=== PATIENT | male | born 1950 | race Caucasian/White ===

== ENCOUNTER 2022-02-14 21:39 | Inpatient (IN) | payer OTHER, SELFPAY ==
--- NOTE | ~2022-02-14 | XR_ITS ---
EXAMINATION: XR CHEST CLINICAL INFORMATION: Shortness of breath COMPARISON: Chest CT 01/05/2021 TECHNIQUE: Frontal view of the chest was obtained. FINDINGS: Lungs are slightly hypoexpanded. Curvilinear subsegmental atelectasis versus scarring in the right lower lung. No airspace consolidation. No pleural effusion or pneumothorax. Approximately 9 mm left apical pulmonary nodule corresponding to finding on CT. Normal cardiomediastinal silhouette. Status post median sternotomy. Intact sternal wires. Mediastinal vascular clips. No evidence pulmonary edema. No acute osseous injury. ACDF hardware projects over the visualized cervical spine. XR/XR chest 1V IMPRESSION: 1. No acute pulmonary process. 2. Approximately 9 mm left apical pulmonary nodule corresponding to finding on CT. 3. Mild right basilar subsegmental atelectasis versus scarring.
--- NOTE | ~2022-02-14 | XR_ITS ---
EXAMINATION: XR CHEST CLINICAL INFORMATION: CHF. COMPARISON: 02/14/2022 chest radiograph. TECHNIQUE: Frontal view of the chest was obtained. FINDINGS: Interval increase in pulmonary vascular markings with significant increase patchy infiltrates in the right lung, most pronounced in the right upper lobe. Mild left basilar linear markings are seen. The heart and mediastinal structures are unremarkable. Multilevel sternotomy wires are intact. XR/XR chest 1V IMPRESSION: Significant interval increase in pulmonary vascular congestion and patchy infiltrates in the right lung. These findings are nonspecific and could be cardiogenic however an infectious/inflammatory process cannot be excluded.
[2022-02-14 21:41] VITALS: BP 145/73; PULSE 120; O2SAT 88
[2022-02-14 21:42] VITALS: BP 153/76; PULSE 126; RESP 30; TEMP 36.4; O2SAT 100; BMI 34.2
--- NOTE | 2022-02-14 21:45 | ECG_ITS ---
Test Reason : SOB Blood Pressure : / mmHG Vent. Rate : 127 BPM Atrial Rate : 127 BPM P-R Int : 124 ms QRS Dur : 086 ms QT Int : 330 ms P-R-T Axes : 000 035 043 degrees QTc Int : 479 ms Poor data quality Sinus tachycardia Low voltage QRS Borderline ECG No previous ECGs available Referred By: Dinorah Rai Electronically Signed By:OSMAR DENSON MD
--- NOTE | 2022-02-14 21:46 | ED_ITS ---
HPI - SOB/Dyspnea General Chief Complaint: Dyspnea Stated Complaint: Resp Distress Source: patient and EMS Mode of arrival: EMS History of Present Illness HPI Narrative: 71-year-old male with arrival from [facility] with acute onset of shortness of breath, patient states that he is supposed to be on oxygen at night and he was not placed on the oxygen and also endorses that he typically follows up at [facility] in [facility] for his paracentesis and that he was last seen at [facility] approximately 2 weeks ago. He denies any fever chills but has shortness of breath and says that he has not received all of his daily medications. His history is significant for liver cirrhosis, CKD, dementia. Patient reports multiple episodes of diarrhea throughout the day. Related Data Allergies Allergy/AdvReac Type Severity Reaction Status Date / Time Unable to Assess Allergy Verified 02/14/22 21:45 Review of Systems Review of Systems: Pertinent positives and negatives as stated in HPI 10 point review of systems is otherwise negative. PMFSH Past Medical History Source: nursing notes reviewed Social History Social History Advance Directives: No Physical Exam Vital Signs: Vital Signs: Last Vital Signs Temp 99.1 F 02/15/22 00:10 Pulse 136 H 02/15/22 00:10 Resp 28 H 02/15/22 00:10 BP 96/65 02/15/22 00:10 Pulse Ox 93 02/15/22 00:10 O2 Del Method 02/15/22 00:10 O2 Flow Rate 15 02/15/22 00:10 BMI result Body Mass Index 34.2 VITAL SIGNS: Reviewed. GENERAL: Well developed, well nourished, in no acute distress. HEAD: Normocephalic/atraumatic EYES: PERRLA, EOMI, scleral icterus EARS: Ext canals without abnormality OROPHARYNX: no oral lesions noted, posterior pharynx clear NECK: Supple, no adenopathy LUNGS: Decreased bilaterally, tachypnea SpO2<100> on CPAP CARDIOVASCULAR: Sinus tachycardia rate and rhythm without noted murmurs, no JVD but bilateral lower extremity 2 to 3+ pitting edema ABDOMEN: Distended, positive fluid wave, tenderness diffusely on palpation MUSCULOSKELETAL: No tenderness, deformities, or effusions noted on gross inspection. EXTREMITIES: No cyanosis, clubbing or edema. SKIN: Inspection of the skin reveals no rashes, mild jaundice NEUROLOGIC: Alert and oriented x 3. Strength and sensation to light touch were grossly intact x 4. Course Course Course Narrative: 71-year-old male with suspected shortness of breath secondary to increased ascitic fluid, VBG inconsistent with CO2 retention to further implicate COPD exacerbation and feel that this is likely secondary to increased abdominal ascites. Given the fact that the patient is experiencing some tenderness on palpation will do a diagnostic and empirically start antibiotics after the paracentesis as well as administering albumin. On review of patient's documentation it appears that they typically removed 5 L of fluid and administer albumin afterwards. 2342: Paracentesis conducted at bedside under ultrasound guidance, we were able to get an enough for diagnostic tests to be conducted as patient had diffuse abdominal discomfort as well as 1 L of fluid before patient inadvertently pulled the catheter from his abdomen. Direct pressure was held for 5 minutes and then a dressing was applied. Blood pressures remained stable throughout, however nurse is now informing me that patient's blood pressure is 80s over 40s and he r emains tachycardic. He is oxygenating well on supplemental oxygen. Will give albumin, normal saline, Rocephin, and re-evaluate. We have requested [facility] records. Reevaluation(s) Reevaluation #1: I discussed the case with the inpatient hospitalist as patient required to be placed back on CPAP with immediate improvement in respiratory rate as well as oxygenation. Patient does remain tachycardic. Time: 00:40 Medications Administered Generic Name Dose Route Start Last Admin Trade Name Freq PRN Reason Stop Dose Admin Sodium Chloride 500 mls @ 500 mls/hr 02/14/22 23:45 02/14/22 23:43 Ns IV 02/15/22 00:44 500 mls/hr .Q1H HUNTER Administration Discontinued Medications Generic Name Dose Route Start Last Admin Trade Name Freq PRN Reason Stop Dose Admin Magnesium Sulfate/Dextrose 1 gm in 100 mls @ 100 mls/hr 02/14/22 22:45 02/15/22 00:36 Magnesium Sulfate/D5w IV 02/14/22 23:44 Infused ONCE ONE Infusion Ceftriaxone Sodium 2 gm/ 50 mls @ 100 mls/hr 02/14/22 23:28 02/15/22 00:36 Sodium Chloride IV 02/14/22 23:57 Infused ONCE ONE Infusion Levalbuterol HCl 1.25 mg 02/14/22 22:02 02/14/22 23:29 Levalbuterol Hcl 1.25 Mg/0.5 Ml Vial.Neb INHALE 02/14/22 22:03 1.25 mg ONCE ONE Administration MDM - SOB/Dyspnea Lab Data Result diagrams: 02/14/22 22:07 02/14/22 22:07 Labs: Lab Results 02/14/22 02/14/22 02/14/22 Range/Units 22:06 22:07 22:07 WBC 20.0 H (4.8-10.8) X10*3/uL RBC 3.65 L (4.60-5.80) X10*6/uL Hgb 12.2 L (14.0-18.0) g/dl Hct 35.3 L (42.0-52.0) % MCV 96.7 (80.0-98.0) fL MCH 33.4 H (27.0-33.0) pg MCHC 34.6 (31.0-36.0) g/dl RDW 14.3 (11.0-16.0) % Plt Count 160 (160-400) X10*3/uL MPV 11.3 (9.4-12.4) fL Immature Gran % (Auto) 0.8 H (0.0-0.4) % Neut % (Auto) 86.8 H (45-73) % Lymph % (Auto) 9.3 L (20-40) % Concho % (Auto) 2.5 (2-11) % Eos % (Auto) 0.3 (0-4) % Baso % (Auto) 0.3 (0-2) % Lymph # (Auto) 1.9 (1.2-4.9) X10*3/uL Concho # (Auto) 0.5 (0.1-1.2) X10*3/uL Eos # (Auto) 0.1 (0.0-0.4) X10*3/uL Baso # (Auto) 0.1 (0.0-0.2) X10*3/uL Abs Immat Gran (auto) 0.16 H (0.00-0.03) X10*3/uL Absolute Neuts (auto) 17.4 H (2.0-8.3) x10*3/uL Absolute Nucleated RBC 0.000 (0.0-0.012) X10*3/uL Nucleated RBC % (auto) 0.0 (0.0-0.2) /100WBC PT 25.9 H (10.0-13.1) SEC INR 2.2 H (0.9-1.1) APTT 32.0 (26.0-36.4) SEC VBG pH (7.32-7.43) VBG pCO2 mmHg VBG pO2 mmHg VBG HCO3 (22-26) mmol/L VBG O2 Saturation % VBG Base Excess mmol/L Sodium (135-145) mmol/L Potassium (3.3-5.1) mmol/L Chloride (96-108) mmol/L Carbon Dioxide (22-29) mmol/L Anion Gap (12-20) BUN (9-16) mg/dL Creatinine (0.5-1.4) mg/dL Estim Creat Clear Calc Estimated GFR Random Glucose (60-115) mg/dL Lactic Acid (0.5-2.0) mmol/L Calcium (8.4-10.2) mg/dL Magnesium (1.6-2.6) mg/dL Total Bilirubin (0.0-1.0) mg/dL AST (5-37) U/L ALT (0-40) U/L Alkaline Phosphatase (39-117) U/L B-Natriuretic Peptide 67 (<100) pg/mL Total Protein (6.5-8.0) g/dL Albumin (3.5-5.0) g/dL Urine Color Urine Appearance Urine pH (5.0-9.0) Ur Specific Naper (1.005-1.025) Urine Protein (Neg-Trace) mg/dL Urine Glucose (UA) (Negative) mg/dL Urine Ketones (Negative) mg/dL Urine Blood (Negative) Urine Nitrite (Negative) Ur Leukocyte Esterase (Negative) Urine RBC (0-2) /HPF Urine WBC (0-5) /HPF Ur Squamous Epith Cells (0-2) /HPF Urine Bacteria (None Seen) Hyaline Casts (0-2) /LPF Peritoneal WBC X10*3/uL Peritoneal RBC X10*6/uL Periton Neutrophils % Periton Lymphocytes % Peritoneal Monocytes % Peritoneal Other Cells % Influenza Type A (PCR) (Negative) Influenza Type B (PCR) (Negative) RSV RNA Qual (PCR) (Negative) SARS-CoV-2 RNA (RT-PCR) (Negative) 02/14/22 02/14/22 02/14/22 Range/Units 22:07 22:07 22:08 WBC (4.8-10.8) X10*3/uL RBC (4.60-5.80) X10*6/uL Hgb (14.0-18.0) g/dl Hct (42.0-52.0) % MCV (80.0-98.0) fL MCH (27.0-33.0) pg MCHC (31.0-36.0) g/dl RDW (11.0-16.0) % Plt Count (160-400) X10*3/uL MPV (9.4-12.4) fL Immature Gran % (Auto) (0.0-0.4) % Neut % (Auto) (45-73) % Lymph % (Auto) (20-40) % Concho % (Auto) (2-11) % Eos % (Auto) (0-4) % Baso % (Auto) (0-2) % Lymph # (Auto) (1.2-4.9) X10*3/uL Concho # (Auto) (0.1-1.2) X10*3/uL Eos # (Auto) (0.0-0.4) X10*3/uL Baso # (Auto) (0.0-0.2) X10*3/uL Abs Immat Gran (auto) (0.00-0.03) X10*3/uL Absolute Neuts (auto) (2.0-8.3) x10*3/uL Absolute Nucleated RBC (0.0-0.012) X10*3/uL Nucleated RBC % (auto) (0.0-0.2) /100WBC PT (10.0-13.1) SEC INR (0.9-1.1) APTT (26.0-36.4) SEC VBG pH (7.32-7.43) VBG pCO2 mmHg VBG pO2 mmHg VBG HCO3 (22-26) mmol/L VBG O2 Saturation % VBG Base Excess mmol/L Sodium 134 L (135-145) mmol/L Potassium 4.2 (3.3-5.1) mmol/L Chloride 102 (96-108) mmol/L Carbon Dioxide 21 L (22-29) mmol/L Anion Gap 15 (12-20) BUN 11 (9-16) mg/dL Creatinine 1.09 (0.5-1.4) mg/dL Estim Creat Clear Calc 74.4 Estimated GFR > 60 Random Glucose 159 H (60-115) mg/dL Lactic Acid 2.6 H* (0.5-2.0) mmol/L Calcium 7.6 L (8.4-10.2) mg/dL Magnesium 1.5 L (1.6-2.6) mg/dL Total Bilirubin 2.7 H (0.0-1.0) mg/dL AST 38 H (5-37) U/L ALT 13 (0-40) U/L Alkaline Phosphatase 132 H (39-117) U/L B-Natriuretic Peptide (<100) pg/mL Total Protein 6.6 (6.5-8.0) g/dL Albumin 2.3 L (3.5-5.0) g/dL Urine Color Dark Yellow Urine Appearance Cloudy Urine pH 5.0 (5.0-9.0) Ur Specific Naper 1.020 (1.005-1.025) Urine Protein Trace (Neg-Trace) mg/dL Urine Glucose (UA) Negative (Negative) mg/dL Urine Ketones Trace (Negative) mg/dL Urine Blood Moderate (2+) H (Negative) Urine Nitrite Negative (Negative) Ur Leukocyte Esterase Moderate (2+) H (Negative) Urine RBC 11-20 H (0-2) /HPF Urine WBC >50 H (0-5) /HPF Ur Squamous Epith Cells 11-20 (0-2) /HPF Urine Bacteria 1+ (None Seen) Hyaline Casts >20 (0-2) /LPF Peritoneal WBC X10*3/uL Peritoneal RBC X10*6/uL Periton Neutrophils % Periton Lymphocytes % Peritoneal Monocytes % Peritoneal Other Cells % Influenza Type A (PCR) (Negative) Influenza Type B (PCR) (Negative) RSV RNA Qual (PCR) (Negative) SARS-CoV-2 RNA (RT-PCR) (Negative) 02/14/22 02/14/22 02/14/22 Range/Units 22:10 22:14 23:27 WBC (4.8-10.8) X10*3/uL RBC (4.60-5.80) X10*6/uL Hgb (14.0-18.0) g/dl Hct (42.0-52.0) % MCV (80.0-98.0) fL MCH (27.0-33.0) pg MCHC (31.0-36.0) g/dl RDW (11.0-16.0) % Plt Count (160-400) X10*3/uL MPV (9.4-12.4) fL Immature Gran % (Auto) (0.0-0.4) % Neut % (Auto) (45-73) % Lymph % (Auto) (20-40) % Concho % (Auto) (2-11) % Eos % (Auto) (0-4) % Baso % (Auto) (0-2) % Lymph # (Auto) (1.2-4.9) X10*3/uL Concho # (Auto) (0.1-1.2) X10*3/uL Eos # (Auto) (0.0-0.4) X10*3/uL Baso # (Auto) (0.0-0.2) X10*3/uL Abs Immat Gran (auto) (0.00-0.03) X10*3/uL Absolute Neuts (auto) (2.0-8.3) x10*3/uL Absolute Nucleated RBC (0.0-0.012) X10*3/uL Nucleated RBC % (auto) (0.0-0.2) /100WBC PT (10.0-13.1) SEC INR (0.9-1.1) APTT (26.0-36.4) SEC VBG pH 7.41 (7.32-7.43) VBG pCO2 32 mmHg VBG pO2 71 mmHg VBG HCO3 20 L (22-26) mmol/L VBG O2 Saturation 93.0 % VBG Base Excess -2.9 mmol/L Sodium (135-145) mmol/L Potassium (3.3-5.1) mmol/L Chloride (96-108) mmol/L Carbon Dioxide (22-29) mmol/L Anion Gap (12-20) BUN (9-16) mg/dL Creatinine (0.5-1.4) mg/dL Estim Creat Clear Calc Estimated GFR Random Glucose (60-115) mg/dL Lactic Acid (0.5-2.0) mmol/L Calcium (8.4-10.2) mg/dL Magnesium (1.6-2.6) mg/dL Total Bilirubin (0.0-1.0) mg/dL AST (5-37) U/L ALT (0-40) U/L Alkaline Phosphatase (39-117) U/L B-Natriuretic Peptide (<100) pg/mL Total Protein (6.5-8.0) g/dL Albumin (3.5-5.0) g/dL Urine Color Urine Appearance Urine pH (5.0-9.0) Ur Specific Naper (1.005-1.025) Urine Protein (Neg-Trace) mg/dL Urine Glucose (UA) (Negative) mg/dL Urine Ketones (Negative) mg/dL Urine Blood (Negative) Urine Nitrite (Negative) Ur Leukocyte Esterase (Negative) Urine RBC (0-2) /HPF Urine WBC (0-5) /HPF Ur Squamous Epith Cells (0-2) /HPF Urine Bacteria (None Seen) Hyaline Casts (0-2) /LPF Peritoneal WBC 0.194 X10*3/uL Peritoneal RBC < 0.002 X10*6/uL Periton Neutrophils 22 % Periton Lymphocytes 8 % Peritoneal Monocytes 8 % Peritoneal Other Cells 62 % Influenza Type A (PCR) NEGATIVE (Negative) Influenza Type B (PCR) NEGATIVE (Negative) RSV RNA Qual (PCR) NEGATIVE (Negative) SARS-CoV-2 RNA (RT-PCR) NEGATIVE (Negative) ECG Data Attestation: I personally reviewed and interpreted this ECG as follows: Prior ECG tracings: not available for review Interpretation: Sinus tachycardia HR -127, no STEMI, ND/QRS/QTC are within normal limits. Procedures Paracentesis Time Out Performed: Yes Indication: possible spontaneous bacterial peritonitis Procedure: diagnostic paracentesis Location: RLQ Local Anesthetic: lidocaine 2% Amount of anesthesia used (mL): 2 Bedside Ultrasound Used: yes, real-time guidance Preparation: sterile prep and drape Amount of fluid obtained (mL): 1,030 Fluid: cloudy Size of Needle Used: 18 Post Procedure Exam: awake, alert and normal BP Patient Tolerated Procedure: well Complications: none Critical Care Time Critical Care Time Critical Care Time: Yes Total Critical Care Time: 30 Attestation: I personally attest to this time spent taking care of the patient. Discharge Plan Discharge Clinical Impression: Shortness of breath, Abdominal pain, Ascites, COPD (chronic obstructive pulmonary disease), Cirrhosis of liver Patient Disposition: Admitted As Inpatient
[2022-02-14 22:17] LABS: MANUAL DIFF FLAG NO
[2022-02-14 22:20] LABS: Venous Blood Gas Refer to POC result
[2022-02-14 22:21] LABS: VBG Base Excess -2.9 mmol/L; VBG HCO3 20 mmol/L (22-26); VBG pCO2 32 mmHg; VBG pH 7.41 (7.32-7.43); VBG pO2 71 mmHg
[2022-02-14 22:29] LABS: Basophils Absolute Auto 0.1 X10*3/uL (0.0-0.2); Basophils Percent Auto 0.3 % (0-2); Eosinophils Absolute Auto 0.1 X10*3/uL (0.0-0.4); Eosinophils Percent Auto 0.3 % (0-4); Hematocrit 35.3 % (42.0-52.0); Hemoglobin 12.2 g/dl (14.0-18.0); INTERNATIONAL NORM RATIO 2.2 (0.9-1.1); Imm Gran Abs Auto 0.16 X10*3/uL (0.00-0.03); Imm Gran Pct Auto 0.8 % (0.0-0.4); Lymphocytes Absolute Auto 1.9 X10*3/uL (1.2-4.9); Lymphocytes Percent Auto 9.3 % (20-40); Mean Corpuscular HGB Conc 34.6 g/dl (31.0-36.0); Mean Corpuscular Hemoglobin 33.4 pg (27.0-33.0); Mean Corpuscular Volume 96.7 fL (80.0-98.0); Mean Platelet Volume 11.3 fL (9.4-12.4); Monocytes Absolute Auto 0.5 X10*3/uL (0.1-1.2); Monocytes Percent Auto 2.5 % (2-11); Neutrophils Absolute Auto 17.4 x10*3/uL (2.0-8.3); Neutrophils Percent Auto 86.8 % (45-73); Platelet Count 160 X10*3/uL (160-400); Prothrombin Time 25.9 SEC (10.0-13.1); Red Blood Count 3.65 X10*6/uL (4.60-5.80); Red Cell Distribution Width 14.3 % (11.0-16.0)
[2022-02-14 22:31] LABS: Appearance Urine Cloudy; Color Urine Dark Yellow; Glucose Urine UA Negative (Negative); Leukocyte Esterase Urine Moderate (2+) (Negative); Nitrite Urine Negative (Negative); UMIC TRIGGER UACC YES; Urine Blood Moderate (2+) (Negative); Urine Ketones Trace mg/dL (Negative); Urine Protein Trace mg/dL (Neg-Trace)
[2022-02-14 22:38] LABS: Alanine Aminotransferase 13 U/L (0-40); Albumin Level 2.3 g/dL (3.5-5.0); Alkaline Phosphatase 132 U/L (39-117); Anion Gap 15 (12-20); Aspartate Amino Transferase 38 U/L (5-37); Bilirubin Total 2.7 mg/dL (0.0-1.0); Blood Urea Nitrogen 11 mg/dL (9-16); Calcium 7.6 mg/dL (8.4-10.2); Carbon Dioxide 21 mmol/L (22-29); Chloride 102 mmol/L (96-108); Creatinine Clr Calc Pharmacy 74.4; Estimated Glomerular Filt Rate > 60; Glucose Random 159 mg/dL (60-115); Lactic Acid 2.6 mmol/L (0.5-2.0); Magnesium 1.5 mg/dL (1.6-2.6); Potassium 4.2 mmol/L (3.3-5.1); Sodium 134 mmol/L (135-145); Total Protein 6.6 g/dL (6.5-8.0)
[2022-02-14 22:52] LABS: Bacteria Urine 1+ (None Seen); Hyaline Casts Urine >20 /LPF (0-2); UACC Culture Trigger YES; WBC Urine >50 /HPF (0-5)
[2022-02-14] MEDS: Magnesium Sulfate/D5W 1 GM/100 ML PIGGYBACK IV (22:56)
--- NOTE | 2022-02-14 23:02 | PC.NURSE ---
Called [facility] at [phone] for Medical Records on patient per .
[2022-02-14 23:06] LABS: Influenza A PCR NEGATIVE (Negative); Influenza B PCR NEGATIVE (Negative); Resp Syncy Virus RNA Qual PCR NEGATIVE (Negative); SARS COV2 PCR INHOUSE NEGATIVE (Negative)
[2022-02-14 23:30] VITALS: PULSE 132; RESP 22; O2SAT 94
[2022-02-14 23:31] VITALS: BP 116/69; PULSE 131; RESP 26; O2SAT 96
[2022-02-14 23:32] VITALS: BP 121/71; PULSE 130; RESP 26; O2SAT 96
--- NOTE | 2022-02-14 23:34 | PC.NURSE ---
Bedside paracentesis at bedside by MD Fredi
[2022-02-14 23:40] VITALS: BP 89/56; PULSE 131; RESP 22; O2SAT 93
--- NOTE | 2022-02-14 23:41 | PC.NURSE ---
Notified Fredi about low BP s/p paracentesis. Verbal orders for 500mL NS bolus
[2022-02-14 23:42] LABS: MN% 73.7 %; PMN% 26.3 %; WBC Peritoneal Fluid 0.194 X10*3/uL
[2022-02-14] MEDS: cefTRIAXone sodium 2 GM in 0.9 % Sodium Chloride 50 ML IV (23:42)
[2022-02-14] MEDS: 0.9 % Sodium Chloride 500 ML IV (23:43)
[2022-02-14 23:47] LABS: RBC Peritoneal Fluid < 0.002 X10*6/uL
[2022-02-15] VITALS (31 sets, daily range): BP systolic 85–140; BP diastolic 27–72; PULSE 86–136; RESP 15–40; TEMP 36.1–37.3; O2SAT 90–100; BMI 32.5; BMI 32.8
[2022-02-15 00:13] LABS: Reflex Lactate? Lactic Acid Added
[2022-02-15 00:17] LABS: BF Shift QC OK YES; Lymphocyte Peritoneal Fl 8 %; Monocytes Peritoneal Fl 8 %; Neutrophils Peritoneal Fluid 22 %; Other Peritioneal Fl 62 %
[2022-02-15 00:18] LABS: B Type Natriuretic Peptide 67 pg/mL (<100)
[2022-02-15] MEDS: Lidocaine HCl 2 % MPF 5 ML VIAL SUBCUT (01:21)
--- NOTE | 2022-02-15 01:24 | PC.NURSE ---
Daughter, Sravanthi's phone number - [phone]. Call at any time of the day or night with updates.
--- NOTE | 2022-02-15 01:36 | PM.CCHP ---
History of Present Illness Date of Service: 02/15/22 Attending physician on admission: Armando Schmidt Chief Complaint: Shortness of breath The patient is a 71 year old male with Past medical history of? paraplegia, neurogenic bladder, type II DM ,dementia,? hypertension,? hyperlipidemia, CVA, BPH, CKD, COPD/emphysema CAD ([place] s/p stenting) s/p CABG x4, KHAN, decompensated cirrhosis with esophageal varices, ascites, hepatic encephalopathy and liver lesions, lung nodule and recent diagnosis of COVID-19 infection? who [facility] to emergency room? [facility]? with shortness of breath.? [facility] facility reported patient acute shortness of breath,? was schedule for paracentesis tomorrow.?? On arrival to the emergency room? patient tachypneic, hypoxic requiring CPAP support. ED physician attempted to do bedside? paracentesis,? but was only able to drain 1 L as the patient pulled out the catheter. ? Laboratory data significant for? WBC 20, hemoglobin 12.2, hematocrit 35.3, serum bicarb 21, lactic acid 2.6, magnesium 1.5, AST 38, alk-phos 132, albumin 2.3. ED course:? Patient received? ceftriaxone, 500 mL bolus, magnesium, and albuterol while in ED.? ? Patient will be admitted for acute respiratory failure requiring CPAP support Review of Systems Review of Systems: Patient confused at baseline, Yes Unobtainable due to mental status PMFSH Past Medical History Medical History (Updated 02/15/22 @ 02:25 by Diane Lozano NP) BPH (benign prostatic hyperplasia) CKD (chronic kidney disease) COVID-19 CVA (cerebral vascular accident) Decompensated liver disease Dementia Diabetes Esophageal varices Hyperlipidemia Hypertension Liver lesion Lung nodule KHAN (nonalcoholic steatohepatitis) Neurogenic bladder Paraplegia Surgical History Surgical History (Updated 02/15/22 @ 02:25 by Diane Lozano NP) Hx of CABG Social History Social History Advance Directives: No Meds Allergies Allergy/AdvReac Type Severity Reaction Status Date / Time metformin Allergy Unknown Verified 02/15/22 03:03 Sulfa (Sulfonamide Allergy Unknown Verified 02/15/22 03:03 Antibiotics) BACTRIM Allergy Unknown Rash Uncoded 02/15/22 03:03 Active Medications: Current Medications Enoxaparin Sodium (Enoxaparin Sodium 40 Mg/0.4 Ml Syringe) 40 mg SUBCUT Q24H [facility] Albumin Human (Kedbumin 25 %) 100 mls @ 100 mls/hr IV Q1H [facility] Stop: 02/15/22 04:29 Piperacillin Sod/Tazobactam (Sod 4.5 gm/ Sodium Chloride) 100 mls @ 200 mls/hr IV Q6H [facility] Physical Exam Vital Signs: Vital Signs: Last Vital Signs Temp 99.2 F 02/15/22 01:24 Pulse 124 H 02/15/22 01:24 Resp 40 H 02/15/22 01:24 BP 99/50 L 02/15/22 01:24 Pulse Ox 92 02/15/22 01:24 O2 Del Method 02/15/22 01:24 O2 Flow Rate 15 02/15/22 00:10 BMI result Body Mass Index 34.2 Focused assement performed at 0100. Constitutional: Alert, in mild distress. Mental Status: Alert and oriented x self and place only. Forgetful and confused at times. Head: Normocephalic. Eyes: Pupils are equal, round and reactive to light. Extraocular muscles intact. Ear, Nose and Throat: Oropharynx clear, mucous membranes dry. Neck: Supple, Full range of motion. Respiratory: Diminished to auscultation. No wheezing, rales or rhonchi. Cardiovascular: Sinus tach. S1 S2 regular. No murmurs, rubs or gallops. normal cap refil Gastrointestinal: Protuberant, positive bowel sounds in all 4 quadrants.?semi firm, nontender, no rebound or guarding.?? Genitourinary: No costovertebral angle tenderness. Neurologic:Paraplegia, bilateral lower extremities. No focal deficits noted Skin: bruising on arms Psychiatric: Normal mood and affect Results Labs CBC and Chem 7: 02/15/22 03:43 02/15/22 03:43 Labs: Laboratory Results - last 24 hr 02/14/22 02/14/22 02/14/22 22:06 22:06 22:07 MCV 96.7 MCH 33.4 H MCHC 34.6 RDW 14.3 Plt Count 160 MPV 11.3 Immature Gran % (Auto) 0.8 H Neut % (Auto) 86.8 H Lymph % (Auto) 9.3 L Faulk % (Auto) 2.5 Eos % (Auto) 0.3 Baso % (Auto) 0.3 Lymph # (Auto) 1.9 Faulk # (Auto) 0.5 Eos # (Auto) 0.1 Baso # (Auto) 0.1 Abs Immat Gran (auto) 0.16 H Absolute Neuts (auto) 17.4 H Absolute Nucleated RBC 0.000 Nucleated RBC % (auto) 0.0 PT INR APTT VBG pH VBG pCO2 VBG pO2 VBG HCO3 VBG O2 Saturation VBG Base Excess Anion Gap Estim Creat Clear Calc Estimated GFR Random Glucose Lactic Acid Calcium Magnesium Total Bilirubin AST ALT Alkaline Phosphatase Troponin I High Sens 5.0 B-Natriuretic Peptide 67 Total Protein Albumin Urine Color Urine Appearance Urine pH Ur Specific [place] Urine Protein Urine Glucose (UA) Urine Ketones Urine Blood Urine Nitrite Ur Leukocyte Esterase Urine RBC Urine WBC Ur Squamous Epith Cells Urine Bacteria Hyaline Casts Peritoneal WBC Peritoneal RBC Periton Neutrophils Periton Lymphocytes Peritoneal Monocytes Peritoneal Other Cells Influenza Type A (PCR) Influenza Type B (PCR) RSV RNA Qual (PCR) SARS-CoV-2 RNA (RT-PCR) 02/14/22 02/14/22 02/14/22 22:07 22:07 22:07 MCV MCH MCHC RDW Plt Count MPV Immature Gran % (Auto) Neut % (Auto) Lymph % (Auto) Faulk % (Auto) Eos % (Auto) Baso % (Auto) Lymph # (Auto) Faulk # (Auto) Eos # (Auto) Baso # (Auto) Abs Immat Gran (auto) Absolute Neuts (auto) Absolute Nucleated RBC Nucleated RBC % (auto) PT 25.9 H INR 2.2 H APTT 32.0 VBG pH VBG pCO2 VBG pO2 VBG HCO3 VBG O2 Saturation VBG Base Excess Anion Gap 15 Estim Creat Clear Calc 74.4 Estimated GFR > 60 Random Glucose 159 H Lactic Acid 2.6 H* Calcium 7.6 L Magnesium 1.5 L Total Bilirubin 2.7 H AST 38 H ALT 13 Alkaline Phosphatase 132 H Troponin I High Sens B-Natriuretic Peptide Total Protein 6.6 Albumin 2.3 L Urine Color Urine Appearance Urine pH Ur Specific [place] Urine Protein Urine Glucose (UA) Urine Ketones Urine Blood Urine Nitrite Ur Leukocyte Esterase Urine RBC Urine WBC Ur Squamous Epith Cells Urine Bacteria Hyaline Casts Peritoneal WBC Peritoneal RBC Periton Neutrophils Periton Lymphocytes Peritoneal Monocytes Peritoneal Other Cells Influenza Type A (PCR) Influenza Type B (PCR) RSV RNA Qual (PCR) SARS-CoV-2 RNA (RT-PCR) 02/14/22 02/14/22 02/14/22 22:08 22:10 22:14 MCV MCH MCHC RDW Plt Count MPV Immature Gran % (Auto) Neut % (Auto) Lymph % (Auto) Faulk % (Auto) Eos % (Auto) Baso % (Auto) Lymph # (Auto) Faulk # (Auto) Eos # (Auto) Baso # (Auto) Abs Immat Gran (auto) Absolute Neuts (auto) Absolute Nucleated RBC Nucleated RBC % (auto) PT INR APTT VBG pH 7.41 VBG pCO2 32 VBG pO2 71 VBG HCO3 20 L VBG O2 Saturation 93.0 VBG Base Excess -2.9 Anion Gap Estim Creat Clear Calc Estimated GFR Random Glucose Lactic Acid Calcium Magnesium Total Bilirubin AST ALT Alkaline Phosphatase Troponin I High Sens B-Natriuretic Peptide Total Protein Albumin Urine Color Dark Yellow Urine Appearance Cloudy Urine pH 5.0 Ur Specific [place] 1.020 Urine Protein Trace Urine Glucose (UA) Negative Urine Ketones Trace Urine Blood Moderate (2+) H Urine Nitrite Negative Ur Leukocyte Esterase Moderate (2+) H Urine RBC 11-20 H Urine WBC >50 H Ur Squamous Epith Cells 11-20 Urine Bacteria 1+ Hyaline Casts >20 Peritoneal WBC Peritoneal RBC Periton Neutrophils Periton Lymphocytes Peritoneal Monocytes Peritoneal Other Cells Influenza Type A (PCR) NEGATIVE Influenza Type B (PCR) NEGATIVE RSV RNA Qual (PCR) NEGATIVE SARS-CoV-2 RNA (RT-PCR) NEGATIVE 02/14/22 23:27 MCV MCH MCHC RDW Plt Count MPV Immature Gran % (Auto) Neut % (Auto) Lymph % (Auto) Faulk % (Auto) Eos % (Auto) Baso % (Auto) Lymph # (Auto) Faulk # (Auto) Eos # (Auto) Baso # (Auto) Abs Immat Gran (auto) Absolute Neuts (auto) Absolute Nucleated RBC Nucleated RBC % (auto) PT INR APTT VBG pH VBG pCO2 VBG pO2 VBG HCO3 VBG O2 Saturation VBG Base Excess Anion Gap Estim Creat Clear Calc Estimated GFR Random Glucose Lactic Acid Calcium Magnesium Total Bilirubin AST ALT Alkaline Phosphatase Troponin I High Sens B-Natriuretic Peptide Total Protein Albumin Urine Color Urine Appearance Urine pH Ur Specific [place] Urine Protein Urine Glucose (UA) Urine Ketones Urine Blood Urine Nitrite Ur Leukocyte Esterase Urine RBC Urine WBC Ur Squamous Epith Cells Urine Bacteria Hyaline Casts Peritoneal WBC 0.194 Peritoneal RBC < 0.002 Periton Neutrophils 22 Periton Lymphocytes 8 Peritoneal Monocytes 8 Peritoneal Other Cells 62 Influenza Type A (PCR) Influenza Type B (PCR) RSV RNA Qual (PCR) SARS-CoV-2 RNA (RT-PCR) Imaging Radiologist's Impressions: Impressions Chest X-Ray 02/14/22 22:42 IMPRESSION: 1. No acute pulmonary process. 2. Approximately 9 mm left apical pulmonary nodule corresponding to finding on CT. 3. Mild right basilar subsegmental atelectasis versus scarring. Assessment and Plan (1) Acute respiratory failure: Status: Acute (2) Liver decompensation: Status: Acute (3) Ascites: Status: Acute (4) Decompensated liver disease: Status: Acute (5) KHAN (nonalcoholic steatohepatitis): Status: Acute (6) Neurogenic bladder: Status: Acute (7) Hypertension: Status: Acute (8) Liver lesion: Status: Acute (9) Lung nodule: Status: Acute Plan Neuro:? ?No acute issues Cardiac:?? Sepsis/ septic shock -? patient white count is 20, lactic elevated to 4. ? Received 500 mL in the emergency room? unable to receive? 30 mL/kg as patient already has ascites and he will third space. Will give albumin for fluid resuscitation. Cont abx. Pulmonary:? ?Acute respiratory? respiratory failure-? requiring CPAP support.? No acute infection? and chest x-ray. likely from liver cirrhosis/ascites.? Patient was unable? to have? appropriate ascites fluid drained? tonight.? Will continue with CPAP and wean off as tolerated? Renal:?? ?No acute issues GI:?? KHAN, Liver cirrhosis with ascites:? He? was scheduled to have paracentesis tomorrow.? Paracentesis was attempted? in the emergency room but? only able to get out 1 L.? Will give albumin. Cont to follow ascites fluid result.? Endo:?? ?No acute issues Heme/Onc:? ?Liver lesions/? lung nodule: patient has history of lesions? in his liver,? as well as new lung nodule noted in November 2021,? was not able to be diagnosed as family decided did not want to go with biopsy when patient was admitted [facility].? ID:? ?Leukocytosis- likely from ascites, ? SBP. ? patient has history of ESBL recistent infection,? receive ceftriaxone in the emergency room.? Will? switch to zosyn? cultures are resulted.? Psych:? No acute issues. Misc:? I spoke with the daughter Sravanthi (HCP) and step daughter Cheri regarding goals of care and plan. ? Daughters in agreement to change code status to DNR/DNI. New MOLST form completed Diet: NPO? Prophylaxis: ? On coumadin at home. On hold now. Will do pneumatic compression? Code? status: DNR/DNI as previously stated critical care time: x 90 min of critical care time? Critical Care Time Critical Care Time (minutes): 90
[2022-02-15] MEDS: Albumin Human 25 % 100 ML IV ×5 (01:51→19:41)
[2022-02-15] MEDS: Piperacillin Sodium/Tazobactam 4.5 GM in 0.9 % Sodium Chloride 100 ML IV ×2 (02:00→07:28)
[2022-02-15] MEDS: Albumin Human 25 % 100 ML 200 ML IV (02:28)
[2022-02-15 03:24] LABS: Reflex Lactate? 2 Y
[2022-02-15 03:33] LABS: pH Peritoneal Fluid 7.56
[2022-02-15 03:49] LABS: Albumin Peritoneal Fluid 0.4 GM/DL; Glucose Peritoneal Fluid 150 MG/DL; LDH Peritoneal Fluid 39 U/L; Total Protein Peritoneal Fluid 0.9 GM/DL
[2022-02-15 03:50] LABS: Basophils Percent Auto 0.3 % (0-2); Hemoglobin 10.9 g/dl (14.0-18.0); Imm Gran Abs Auto 0.01 X10*3/uL (0.00-0.03); Imm Gran Pct Auto 0.3 % (0.0-0.4); Mean Platelet Volume 10.8 fL (9.4-12.4); PLT CLUMP 1; SCAN SMEAR FLAG 1
[2022-02-15 03:52] LABS: Hematocrit 31.9 % (42.0-52.0); Lymphocytes Absolute Auto 0.3 X10*3/uL (1.2-4.9); Lymphocytes Percent Auto 8.6 % (20-40); Mean Corpuscular HGB Conc 34.2 g/dl (31.0-36.0); Mean Corpuscular Hemoglobin 33.5 pg (27.0-33.0); Mean Corpuscular Volume 98.2 fL (80.0-98.0); Monocytes Absolute Auto 0.3 X10*3/uL (0.1-1.2); Monocytes Percent Auto 7.8 % (2-11); Red Blood Count 3.25 X10*6/uL (4.60-5.80); Red Cell Distribution Width 14.3 % (11.0-16.0); Venous Blood Gas Refer to POC result
[2022-02-15 03:53] LABS: VBG Base Excess -1.9 mmol/L; VBG HCO3 23 mmol/L (22-26); VBG pCO2 42 mmHg; VBG pH 7.35 (7.32-7.43); VBG pO2 37 mmHg
--- NOTE | 2022-02-15 03:58 | PC.NURSE ---
Addendum entered by Crescencio Bai RN 02/15/22 06:16: PATIENT'S DAUGHTER AND STEP-DAUGHTER AT BEDSIDE....CODE STATUS CHANGED TO DNR/DNI BY FAMILY...MOLST FORM COMPLETED BY FAMILY AND ICU RETRIEVAL SPECIALIST..TO CONTINUE BIPAP SUPPORT...HR CURRENTLY 104-110...RR 24-28...SAO2 98%...FAMILY REMAINS AT BEDSIDE Original Note: ADMIT TO 254-1 APPROX 01:40...BIPAP 10/5 AND FIO2 60%...RR 36-38...Ve 22-24 l/m...SAO2 89-90% AT ARRIVAL...S.TACH HR 128-132....SBP 88-90...CHRONIC PALACIO WITH 200ml ORANGE URINE ON ARRIVAL...AWAKE..CONVERSES..ORIENTED TO PERSON...INTERMITTANT INAPPRPRIATE COMMENTS... MAYBE IT'S TIME TO GO TO THE PARKING LOT ...PATIENT'S DAUGHTER AT BEDSIDE...ZOSYN AND ALBUMEN X3 BAGS INFUSED PER MAY...SBP 90'S...PALACIO REMAINS WITH SCANT OUTPUT..HR DECREASED TO 106-108...RR 24-28...LACTIC REMAINS ELEVATED AT 4.0--3.8....STEP DAUGHTER CURRENTLY AT BEDSIDE WITH DAUGHTER...STATUS REVIEWED WITH BOTH
[2022-02-15 04:02] LABS: MANUAL DIFF FLAG NO; White Blood Count 3.6 X10*3/uL (4.8-10.8)
[2022-02-15 04:08] LABS: Platelet Count 91 X10*3/uL (160-400)
[2022-02-15 04:10] LABS: Alanine Aminotransferase 8 U/L (0-40); Alkaline Phosphatase 80 U/L (39-117); Anion Gap 15 (12-20); Aspartate Amino Transferase 18 U/L (5-37); Bilirubin Total 3.3 mg/dL (0.0-1.0); Blood Urea Nitrogen 12 mg/dL (9-16); Carbon Dioxide 24 mmol/L (22-29); Chloride 103 mmol/L (96-108); Creatinine Clr Calc Pharmacy 54.2; Estimated Glomerular Filt Rate 47; Glucose Random 117 mg/dL (60-115); Magnesium 1.5 mg/dL (1.6-2.6); Potassium 3.9 mmol/L (3.3-5.1); Sodium 138 mmol/L (135-145); Total Protein 5.8 g/dL (6.5-8.0)
[2022-02-15 04:12] LABS: ~Lactic Acid-LAB USE ONLY 3.8 mmol/L (0.5-2.0)
[2022-02-15] MEDS: Magnesium Sulfate/H2O 2 GM/50 ML PIGGYBACK IV (05:11)
[2022-02-15 07:19] LABS: Amylase Peritoneal Fluid 7
--- NOTE | 2022-02-15 08:47 | PHA.MEDREC ---
Pharmacy Consult ? Medication Reconciliation Pharmacy has completed the medication reconciliation. Used list from [facility] More[facility]
[2022-02-15] MEDS: Midodrine HCl 10 MG TABLET PO ×2 (08:51→15:48)
[2022-02-15 11:55] LABS: Glucose, Whole Blood 102 mg/dL (60-115)
[2022-02-15] MEDS: Nystatin Powder 15 GM BOTTLE 1 APPL TOPICAL ×2 (12:37→22:10)
[2022-02-15 18:03] LABS: Glucose, Whole Blood 83 mg/dL (60-115)
--- NOTE | 2022-02-15 18:06 | MHC.SL.SWA ---
Speech Pathologist Impression: Risk of Aspiration Due to: Medically Fragile Neurological Condition Weak Cough Dysphasia Diet Status: Liquid Consistency and Strategies for Safe Swallow: Liquid Intake Recommendation: NPO Liquid Intake Strategies: Solid Food Consistency: Dietary Recommendations: NPO Additional Modifications to Solid Foods: Oral Medication Intake: NPO Please contact the pharmacy regarding appropriate crushable or liquid drug formulations that are available whenever modified delivery is recommended. Compensatory Strategies and Precautions to be Taken for Safe Swallow: Supervision While Eating and Drinking for Safe Swallow: Foods to Avoid: Swallowing Recommended Treatments: Compens. Strategy Educat. Recommendation for Speech: Inpatient Speech Therapy Comment: Patient was able to take very limited amount of PO on todays assessment, becoming quickly fatigued, with O2 sats dipping into 80s and slowly rebounding when given small amount of liquid. Patient frequently commented that swallowing is hard and on observation swallowing today was very conscious and effortful on only the trace amount of po presented. Pt also reported globus sensation/discomfort on only small amount of puree consistency presented. Recommend continued NPO at this time, as patient is not appropriate, does not have stamina to start diet, and is at risk for aspiration. ZONING ENGINEER will continue to follow for readiness, stamina, will re-assess swallow for diet recommendations. MD, [employer], RD notified of recommendation by secure text, Nursing in person. Frequency/Duration: Date Range for Service Req: Timeline to reassess: Gymnasium Teacher Clinican/Clinical Fellow: No Supervisory Statement: I have reviewed and agree with the student/clinical fellow's documentation: N/A Speech Language Pathologist: Jenny Lawrence M.A., CCC-ZONING ENGINEER
[2022-02-15] MEDS: Dextrose 10 % 1,000 ML 20 ML IVCONT (18:23)
--- NOTE | 2022-02-15 18:57 | PM.SEPBOLA3 ---
Sepsis Bolus Exclusion Sepsis Bolus Exclusion Date of Occurrence: 02/15/22 This patient met severe sepsis criteria due to the following condition(s):: Lactate>=4mmol/L and Documentation of septic shock In my clinical judgement the administration of 30 ml/kg of crystalloid would be detrimental to this patient due to the patient's following conditions:: Concern for fluid overload (decompensated liver disease at risk for fluid overload. Resucitated with Colloids) Replace the 30 mls/kg with (*zero amount not acceptable): *Note: One of the jarquin must be documented Crystalloids amount given in mls: (rate must be at least 150cc/hr): 500 Colloids amount given in mls:: 300
[2022-02-15] MEDS: Morphine Sulfate 2 MG/ML CARTRIDGE 1 MG IVPUSH (22:31)
[2022-02-16] VITALS (17 sets, daily range): BP systolic 91–145; BP diastolic 40–76; PULSE 78–101; RESP 20–30; TEMP 36.1–37.1; O2SAT 89–96; BMI 33.8; BMI 33.5
[2022-02-16 00:57] LABS: Glucose, Whole Blood 84 mg/dL (60-115)
[2022-02-16] MEDS: Albumin Human 25 % 100 ML IV ×4 (02:55→20:43)
[2022-02-16 05:28] LABS: VBG Base Excess -0.6 mmol/L; VBG HCO3 23 mmol/L (22-26); VBG pCO2 33 mmHg; VBG pH 7.44 (7.32-7.43); VBG pO2 58 mmHg
[2022-02-16 05:29] LABS: Hemoglobin 8.5 g/dl (14.0-18.0); Mean Corpuscular Hemoglobin 33.2 pg (27.0-33.0); PLT CLUMP 1; Red Blood Count 2.56 X10*6/uL (4.60-5.80); Red Cell Distribution Width 14.5 % (11.0-16.0)
[2022-02-16 05:31] LABS: Hematocrit 25.1 % (42.0-52.0); Mean Corpuscular HGB Conc 33.9 g/dl (31.0-36.0); Mean Platelet Volume 11.5 fL (9.4-12.4)
[2022-02-16 05:33] LABS: Platelet Count 44 X10*3/uL (160-400); White Blood Count 9.9 X10*3/uL (4.8-10.8)
[2022-02-16 05:38] LABS: Ammonia 48 umol/L (13-55)
[2022-02-16 05:47] LABS: Alanine Aminotransferase 6 U/L (0-40); Albumin Level 3.3 g/dL (3.5-5.0); Alkaline Phosphatase 38 U/L (39-117); Anion Gap 14 (12-20); Aspartate Amino Transferase 18 U/L (5-37); Bilirubin Total 2.8 mg/dL (0.0-1.0); Blood Urea Nitrogen 18 mg/dL (9-16); Carbon Dioxide 23 mmol/L (22-29); Chloride 104 mmol/L (96-108); Creatinine Clr Calc Pharmacy 59.2; Estimated Glomerular Filt Rate 51; Glucose Random 92 mg/dL (60-115); Magnesium 1.6 mg/dL (1.6-2.6); Phosphorus 3.8 mg/dL (2.7-4.5); Potassium 3.9 mmol/L (3.3-5.1); Sodium 137 mmol/L (135-145); Total Protein 5.4 g/dL (6.5-8.0)
[2022-02-16 05:49] LABS: Band Neutrophils Percent 15 % (3-5); Lymphocytes Percent Manual 10 % (20-40); Monocytes Absolute Manual 0.1 X10*3/uL (0.1-1.2); Monocytes Percent Manual 1 % (2-11); Neutrophils Absolute Manual 8.8 X10*3/uL (2.0-8.3); Neutrophils Percent Manual 74 % (45-73)
[2022-02-16 05:50] LABS: Acanthocytes 2+ (3-5) /OIF; Ovalocytes 1+ (5-14) /OIF; Platelet Estimate DECREASED (NORMAL); Platelet Morphology Comment NORMAL; RBC Morphology NOTED; Tear Drop Cells 1+ (0-2) /OIF
[2022-02-16 05:51] LABS: Toxic Vacuolation PRESENT
[2022-02-16 05:54] LABS: Glucose, Whole Blood 83 mg/dL (60-115)
[2022-02-16] MEDS: Albuterol/Iprat 2.5/0.5MG 3 ML AMPUL.NEB INHALE (06:25)
--- NOTE | 2022-02-16 06:30 | PC.NURSE ---
ASSUMED CARE OF PT AT 1900. PT HAS SLEPT ON AND OFF IN NAPS. WAKES UP AND CALLS OUT FOR HELP. HE IS FEARFUL TO BE ALONE. HAS PERIODS OF ANXIOUSNESS AND COMPLAINS HE CAN'T BREATH. RECEIVED A ONE TIME DOSE OF MORPHINE 1 MG IV WITH GOOD EFFECT. BIPAP WAS APPLIED BUT PT COULD ONLY TOLERATE IT FOR 2 HOURS THEN NASAL CANNULA APPLIED AT 5L. O2 SATS 89-92%. CONGESTED WEAK COUGH NOTED. UDN GIVEN WITH LITTLE EEFFECT. PT IS SLIGHTLY CONFUSED. ABLE TO FOLLOW SIMPLE COMMANDS. INCONTINENT OF LIQUID STOOL X2. RECTAL TUBE INSERTED. POC BLOOD SUGARS NOT REQUIRING INSULIN. DEXTROSE 10% INFUSING AT 20 ML/HR. U/O LOW 10-30 ML/HR. PROVIDER GABRIELE HAGAN AWARE. ABD IS LARGE, DISTENDED.
[2022-02-16] MEDS: Nystatin Powder 15 GM BOTTLE 1 APPL TOPICAL ×2 (07:48→21:23)
--- NOTE | 2022-02-16 07:57 | P.CDIC_ITS ---
CDI Concurrent Query Documentation Clarification: PHYSICIAN'S DOCUMENTATION REQUEST Date of Query: 02/16/22 0758 Patient Name: Franklin Pierce Admit Date: 02/15/22 Dear Doctor, A review of the medical record indicates additional documentation may be needed. Please review below and update the documentation accordingly. Clinical Indicators: Risk Factors/Clinical Indicators/Treatments PMH: Dementia ED 02/15 = Patient forgetful, confused, unable to obtain history due to mental status. Attempted to do bedside paracentesis, patient pulled out drain - ICU admit. Decompensated cirrhosis with ascites. If possible, please further clarify type of Alzheimer's and any associated manifestations: Disease Type: * Dementia, Vascular, Senile, Alzheimer's etc. * Encephalopathy, hepatic, metabolic, toxic or other * Unable to determine Associated Manifestations: * Dementia without behavioral disturbance * Dementia with behavioral disturbance * Confusion * No associated manifestations * Other ? please specify * Unable to determine Use of terms such as suspected, likely, concern for, or probable (associated with a specific diagnosis that is being evaluated, monitored, or treated as if it exists) are acceptable and can be coded in the inpatient setting, when documented at the time of discharge. Thank you, Page Flowers [facility], CDIS Extension: [phone] Please use your independent medical judgment in providing your response. THIS QUERY IS PART OF THE PERMANENT MEDICAL RECORD Provider Response: Other ( dementia without behavioral disturbance) Other Diagnosis: dementia without behavioral disturbance
[2022-02-16 09:19] LABS: Venous Blood Gas Refer to POC result
[2022-02-16] MEDS: Magnesium Sulfate/H2O 2 GM/50 ML PIGGYBACK IV (10:34)
--- NOTE | 2022-02-16 11:02 | P.PNCC_ITS ---
Subjective Subjective Date of Service: 02/16/22 Interval History: 71-year-old gentleman with underlying KHAN advanced liver cirrhosis requiring paracentesis every several weeks at [facility] or [facility], hepatic encephalopathy, underlying esophageal varices, hepatic lesions ( likely metastatic cancer) paraplegia, neurogenic bladder, diabetes mellitus, early dementia, prior history of CVA, also CKD, COPD, CAD with prior WI status post stenting and CABG, prior ESBL infections, supplemental oxygen use particularly before paracentesis sessions,in DNR DNI code status [facility] with dyspnea and abdominal discomfort. Patient has had paracentesis performed in the emergency room with drainage of approximately 1 L of straw-colored ascitic fluid with fluid studies demonstrating no evidence of spontaneous bacterial peritonitis. Patient was also noted to be hypotensive with poor response to initial IV fluid resuscitation. He was started on empiric antibiotics and admitted to intensive care unit. In the intensive care unit he was started on colloidal support with albumin, midodrine, and adjustment of broad-spectrum antibiotics to cover possible ESBL pathogen. Patient's blood pressure and mental status have improved. His cultures are negative to date, however he still has significant bandemia on peripheral smear. H he remains lethargic, though arousable and answering appropriately. His ammonia level is normal Critical Care Time (minutes): 0 Physical Exam Vital Signs: Vital Signs: Last Vital Signs Temp 96.9 F 02/16/22 08:00 Pulse 83 02/16/22 10:00 Resp 20 02/16/22 10:00 BP 93/40 L 02/16/22 10:00 Pulse Ox 95 02/16/22 10:00 O2 Del Method 02/16/22 10:00 O2 Flow Rate 5 02/16/22 10:00 FiO2 40 02/15/22 23:58 BMI result Body Mass Index 33.5 Const: General: no acute distress and lethargic ( arousable, and answers appropriately) Orientation/consciousness: lethargic ( arousable, and answers appropriately) Eyes: Sclerae: sclerae normal EOM: EOMs intact bilaterally Neck: Neck: Yes no lymphadenopathy, Yes trachea midline and Yes supple Resp: Effort & Inspection: normal respiratory effort and no respiratory distress Auscultation: crackles ( diffuse bilateral) Cardio: Rate: regular rate Rhythm: regular rhythm Heart sounds: no gallops, no murmurs and no rubs GI: Palpation (GI): Soft to palpation and Other GI palpation findings present ( Nontender) Auscultation: normal bowel sounds Extrem: General: No clubbing, No cyanosis and Yes edema ( 1+ bilateral) Objective Data Labs CBC & Chem 7: 02/16/22 05:19 02/16/22 05:19 Labs: Laboratory Results - last 24 hr 02/15/22 02/15/22 02/16/22 11:46 17:49 00:53 WBC RBC Hgb Hct MCV MCH MCHC RDW Plt Count MPV Immature Gran % (Auto) Neut % (Auto) Lymph % (Auto) [place] % (Auto) Eos % (Auto) Baso % (Auto) Lymph # (Auto) [place] # (Auto) Eos # (Auto) Baso # (Auto) Abs Immat Gran (auto) Absolute Neuts (auto) Absolute Nucleated RBC Nucleated RBC % (auto) Neutrophils % (Manual) Band Neutrophils % Lymphocytes % (Manual) Monocytes % (Manual) Abs Neuts (Manual) Lymphocytes # (Manual) Monocytes # (Manual) Toxic Vacuolation Platelet Estimate Plt Morphology Comment RBC Morphology Tear Drop Cells Ovalocytes Acanthocytes (Spur) VBG pH VBG pCO2 VBG pO2 VBG HCO3 VBG O2 Saturation VBG Base Excess Sodium Potassium Chloride Carbon Dioxide Anion Gap BUN Creatinine Estim Creat Clear Calc Estimated GFR POC Glucose 102 83 84 Random Glucose Calcium Phosphorus Magnesium Total Bilirubin AST ALT Alkaline Phosphatase Ammonia Total Protein Albumin 02/16/22 02/16/22 02/16/22 05:19 05:19 05:19 WBC 9.9 RBC 2.56 L D Hgb 8.5 L D Hct 25.1 L D MCV 98.0 MCH 33.2 H MCHC 33.9 RDW 14.5 Plt Count 44 L D MPV 11.5 Immature Gran % (Auto) Cancelled Neut % (Auto) Cancelled Lymph % (Auto) Cancelled [place] % (Auto) Cancelled Eos % (Auto) Cancelled Baso % (Auto) Cancelled Lymph # (Auto) Cancelled [place] # (Auto) Cancelled Eos # (Auto) Cancelled Baso # (Auto) Cancelled Abs Immat Gran (auto) Cancelled Absolute Neuts (auto) Cancelled Absolute Nucleated RBC 0.000 Nucleated RBC % (auto) 0.0 Neutrophils % (Manual) 74 H Band Neutrophils % 15 H Lymphocytes % (Manual) 10 L Monocytes % (Manual) 1 L Abs Neuts (Manual) 8.8 H Lymphocytes # (Manual) 1.0 L Monocytes # (Manual) 0.1 Toxic Vacuolation PRESENT Platelet Estimate DECREASED Plt Morphology Comment NORMAL RBC Morphology NOTED Tear Drop Cells 1+ (0-2) Ovalocytes 1+ (5-14) Acanthocytes (Spur) 2+ (3-5) VBG pH VBG pCO2 VBG pO2 VBG HCO3 VBG O2 Saturation VBG Base Excess Sodium 137 Potassium 3.9 Chloride 104 Carbon Dioxide 23 Anion Gap 14 BUN 18 H Creatinine 1.36 Estim Creat Clear Calc 59.2 Estimated GFR 51 POC Glucose Random Glucose 92 Calcium 8.0 L Phosphorus 3.8 Magnesium 1.6 Total Bilirubin 2.8 H AST 18 ALT 6 Alkaline Phosphatase 38 L Ammonia 48 Total Protein 5.4 L Albumin 3.3 L 02/16/22 02/16/22 05:22 05:50 WBC RBC Hgb Hct MCV MCH MCHC RDW Plt Count MPV Immature Gran % (Auto) Neut % (Auto) Lymph % (Auto) [place] % (Auto) Eos % (Auto) Baso % (Auto) Lymph # (Auto) [place] # (Auto) Eos # (Auto) Baso # (Auto) Abs Immat Gran (auto) Absolute Neuts (auto) Absolute Nucleated RBC Nucleated RBC % (auto) Neutrophils % (Manual) Band Neutrophils % Lymphocytes % (Manual) Monocytes % (Manual) Abs Neuts (Manual) Lymphocytes # (Manual) Monocytes # (Manual) Toxic Vacuolation Platelet Estimate Plt Morphology Comment RBC Morphology Tear Drop Cells Ovalocytes Acanthocytes (Spur) VBG pH 7.44 H VBG pCO2 33 VBG pO2 58 VBG HCO3 23 VBG O2 Saturation 90.0 VBG Base Excess -0.6 Sodium Potassium Chloride Carbon Dioxide Anion Gap BUN Creatinine Estim Creat Clear Calc Estimated GFR POC Glucose 83 Random Glucose Calcium Phosphorus Magnesium Total Bilirubin AST ALT Alkaline Phosphatase Ammonia Total Protein Albumin Microbiology Microbiology Results: Microbiology 02/14/22 23:27 Urine clean catch - Urine cantu top Urine Culture - Preliminary Culture in progress. 02/14/22 23:27 Ascites Fluid Gram Stain - Final 02/14/22 23:27 Ascites Fluid Anaerobic Culture - Preliminary No growth to date. 02/14/22 23:27 Ascites Fluid Body Fluid Culture - Preliminary No growth after 1 day 02/14/22 22:06 Blood - Venous Blood Culture - Preliminary No growth after 24 hours. 02/14/22 22:07 Blood - Venous Blood Culture - Preliminary No growth after 24 hours. Progress Note: A&P Assessment and plan (1) Liver lesion: Status: Acute (2) Lung nodule: Status: Acute (3) KHAN (nonalcoholic steatohepatitis): Status: Acute (4) Cirrhosis of liver: Status: Acute (5) Esophageal varices: Status: Acute (6) Diabetes: Status: Acute (7) Dementia: Status: Acute (8) Acute kidney injury superimposed on CKD: Status: Acute (9) Paraplegia: Status: Acute (10) Neurogenic bladder: Status: Acute (11) Acute respiratory failure: Status: Acute Plan Assessment: 71-year-old gentleman with underlying advanced liver cirrhosis and multiple other medical issues admitted with hepatorenal syndrome possible secondary to infectious etiology, now with slow improvement. Plan: Neuro: Underlying dementia. No evidence of hepatic encephalopathy. Continues to work with speech and swallow therapy. Prior history of CVA , neurogenic bladder, and paraplegia. Cardiac: Hypotension likely secondary to intravascular volume depletion with fluid shifts secondary to hypoalbuminemia and ascites. Improved on colloidal support and midodrine. Pulmonary: Acute on chronic hypoxia secondary to pulmonary edema from hypoalbuminemia. Improved with colloidal support. Will restart on low doses of Lasix and spironolactone to control underlying ascites and pulmonary edema. Continue to titrate off supplemental oxygen as tolerated. Renal: acute renal failure on chronic kidney disease secondary to hepatorenal syndrome, improving. Continue to monitor renal indices and urine output. Endo: No acute issues. GI: advanced hepatic cirrhosis, likely secondary to nonalcoholic steatohepatitis. On recurrent paracentesis every few weeks. Status post drainage of approximately 1 L in emergency room. No evidence of spontaneous bacterial peritonitis. Likely underlying hepatic malignancy, workup to continue on outpatient basis. History of esophageal varices, to start on beta-urvashi prophylaxis as blood pressure tolerates. ID: Prior history of ESBL infections. Empirically covered with meropenem, continue until cultures are finalized. Heme/Onc: Thrombocytopenia, chronic. Continue to monitor blood cell counts. Psych: No acute issues. Miscellaneous: No acute issues. Prophylaxis: intermittent pneumatic compression,. Diet: Pending swallow evaluation Quality Stroke Does the patient have a stroke diagnosis?: No VTE Prior VTE?: No VTE Risk Level:: Medical - moderate - high VTE Device Contraindication: Patient Refused VTE Drug Contraindication: N/A - Med Ordered
[2022-02-16 12:03] LABS: Glucose, Whole Blood 82 mg/dL (60-115)
[2022-02-16] MEDS: Furosemide 20 MG/2 ML VIAL IVPUSH (13:51)
--- NOTE | 2022-02-16 14:15 | MHC.CM.PN ---
Pt continues care in ICU - he is a private pay bed hold at [facility]. Clinical updates to be remitted. CM to follow.
--- NOTE | 2022-02-16 15:31 | PC.NURSE ---
Throughout shift today, pt c/o SOB and endorsing feeling like i'm going to multiple times. MD Schmidt notified, RN medical records supervisor Johanna notified, assistant guest services manager Pascual notified - no interventions taken. This RN advised MD Schmidt to reconsider paracentesis and order prn breathing treatments - provider declined. IV Lasix given x1 w/no improvement in respiratory status - MD Schmidt notified, no further interventions. Report given to C RN, made RN aware of the above findings, no further questions at this time. Pt transferred to [facility] via bed.
[2022-02-16 15:46] LABS: Glucose, Whole Blood 93 mg/dL (60-115)
--- NOTE | 2022-02-16 16:29 | MHC.SL.SWA ---
Addendum entered and electronically signed by Julita De La Torre MA, CCC-TRANSPORTATION SUPERINTENDENT 02/16/22 16:40: D.S. Original Note: Risk of Aspiration Due to: Medically Fragile Neurological Condition Weak Cough Dysphasia Diet Status: Recommend pt continue NPO Liquid Consistency and Strategies for Safe Swallow: Liquid Intake Recommendation: NPO Liquid Intake Strategies: Solid Food Consistency: Dietary Recommendations: NPO Additional Modifications to Solid Foods: Oral Medication Intake: NPO Please contact the pharmacy regarding appropriate crushable or liquid drug formulations that are available whenever modified delivery is recommended. Supervision While Eating and Drinking for Safe Swallow: PO with TRANSPORTATION SUPERINTENDENT Swallowing Recommended Treatments: Compens. Strategy Educat. Recommendation for Speech: Inpatient Speech Therapy Regional Commercial Sales Manager Clinican/Clinical Fellow: Yes: Yaa Dong M.A., -TRANSPORTATION SUPERINTENDENT Supervisory Statement: I have reviewed and agree with the student/clinical fellow's documentation: Yes Speech Language Pathologist: Julita De La Torre M.A., [facility]-TRANSPORTATION SUPERINTENDENT
[2022-02-16 18:26] LABS: Glucose, Whole Blood 88 mg/dL (60-115)
[2022-02-16] MEDS: Dextrose 10 % 1,000 ML 20 ML IVCONT (18:28)
[2022-02-16] MEDS: Fluticasone Propionate Nasal 16 GM SPRAY 1 SPRAY NOSTRIL-B (21:23)
[2022-02-16 23:30] LABS: Glucose, Whole Blood 95 mg/dL (60-115)
[2022-02-17] VITALS (13 sets, daily range): BP systolic 111–165; BP diastolic 54–70; PULSE 88–123; RESP 18–33; TEMP 36.1–38.6; O2SAT 86–97
--- NOTE | 2022-02-17 | ECG_ITS ---
Test Reason : cp Blood Pressure : / mmHG Vent. Rate : 099 BPM Atrial Rate : 099 BPM P-R Int : 158 ms QRS Dur : 088 ms QT Int : 370 ms P-R-T Axes : 001 035 018 degrees QTc Int : 474 ms Sinus rhythm with Premature atrial complexes Low voltage QRS RSR' or QR pattern in V1 suggests right ventricular conduction delay Nonspecific ST and T wave abnormality Abnormal ECG When compared with ECG of 14-FEB-2022 21:49, Premature atrial complexes are now Present Nonspecific ST and T wave abnormality Inferior leads Referred By: Heidi Allen Electronically Signed By:OSMAR DENSON MD
[2022-02-17] MEDS: Albumin Human 25 % 100 ML IV (01:00)
[2022-02-17] MEDS: OLANZapine 10 MG VIAL 5 MG IM (04:07)
[2022-02-17 05:30] LABS: Glucose, Whole Blood 94 mg/dL (60-115)
[2022-02-17] MEDS: Nystatin Powder 15 GM BOTTLE 1 APPL TOPICAL ×2 (09:57→21:52)
[2022-02-17] MEDS: Fluticasone Propionate Nasal 16 GM SPRAY 1 SPRAY NOSTRIL-B ×2 (09:57→21:52)
[2022-02-17] MEDS: Furosemide 20 MG/2 ML VIAL IVPUSH (10:34)
[2022-02-17 11:33] LABS: Glucose, Whole Blood 95 mg/dL (60-115)
[2022-02-17] MEDS: Furosemide 40 MG/4 ML VIAL IVPUSH ×2 (12:32→16:03)
--- NOTE | 2022-02-17 12:44 | PC.NURSE ---
Addendum entered by Cheli Purdy RN 02/17/22 18:38: Pt HR sustaining 130s-150s, MD notified - verbal order to administer coreg early and titrate O2 between 1-2L to maintain sats 90%-92%. tools administrator per May, currently at 2L satting 90% at 1841 Addendum entered by Cheli Purdy RN 02/17/22 15:30: PO meds held this morning, unscheduled dose of psych meds given per MD verbal orders. MD, RT and this RN at bedside to assess pt. ICU MD consulted. Addendum entered by Cheli Purdy RN 02/17/22 14:56: Critical pH of 7.616 received, MD notified. Pt on BiPap, increased restlessness noted. Continues to be lethargic. Family at bedside. Safety precautions remain in place. Original Note: report received from overnight RN. Pt on strict NPO d/t failed speech eval. PO meds held, MD notified. IV district medical examiner per MAY. pt has weak, very moist nonproductive cough. RT to bedside for suctioning with scant amount of sputum. Pt lung sounds course crackles, new orders for lasix IVP x2. Repeat speech eval complete, RT to bedside to assist with BiPAP. Daughter at bedside. Call antonio within reach, bed alarm on, camera in room, hourly rounding, safety precautions taken.
--- NOTE | 2022-02-17 13:25 | MHC.SL.SWA ---
Speech Pathologist Impression: Risk of Aspiration Due to: Medically Fragile Neurological Condition Weak Cough Dysphasia Diet Status: Puree (NDD1) with THIN liquids by tsp only. Recommend patient be provided with small meals/small amounts of food or liquid in multiple intervals during the day as tolerated. Monitor 02 saturation during meal, take frequent breaks for respiration if needed. Liquid Consistency and Strategies for Safe Swallow: Liquid Intake Recommendation: Thin Liquid Intake Strategies: Small Sips Liquids by Teaspoon Only Solid Food Consistency: Dietary Recommendations: Pureed (NDD1) Additional Modifications to Solid Foods: Provide PO in small meals at intervals throughout day (every 2-3 hours) Foods that can be taken from meal trays (e.g. yogurts, pureed fruits) should be saved for later presentation, or similar foods can be taken from floor kitchen. Present all by small tsp amount, alternate presentations of liquids and solids. Monitor 02 saturation, take breaks to allow patient to rebound/breath as needed. Patient will need 1-1 feed, provide only as much as patient is tolerant of. Do not attempt/discontinue if patient is lethargic, is requiring Bi-pap, evidences excessive mucous production/congestion. Oral Medication Intake: Crushed with Puree Please contact the pharmacy regarding appropriate crushable or liquid drug formulations that are available whenever modified delivery is recommended. Compensatory Strategies and Precautions to be Taken for Safe Swallow: Sitting Upright (90 deg) Liquids from Spoon Small Bites and Sips Alternate Liquids/Solids Rate of Ingestion Change Avoid Specific Foods Supervision While Eating and Drinking for Safe Swallow: Total Assistance (1:1) Foods to Avoid: Sticky or congealed purees. Add gravies and sauces to puree. Swallowing Recommended Treatments: Compens. Strategy Educat. Recommendation for Speech: Inpatient Speech Therapy Comment: Pt seen for re-evaluation of swallow at request of MD. Pt now on [facility] [place] [place] floor, at onset of eval patient was on Bipap. Nursing contacted re: removing Bipap for eval which was approved, however it was requested that he be put on lower level O2, so respiratory therapy was contacted. RT reported that patient required Bipap, but could be put on highflow mask for assessment. LUNCHROOM MONITOR removed mask to present liquid by tsp amount. Patient wanted water and agreed to the trials. Pt given three tsps, producing timely oral phase, timely swallow. After three tsps, patient shook head and said no had evident upper airway noise. Mask replaced, patient produced a weak cough. LUNCHROOM MONITOR checked O2 saturation which was in 90s. Patient agreed to take some more water, with three more tsps given, then again said no, produced a weak cough to clear airway. O2 Saturation again checked to be in the 90s. Pt was offered nectar thick cranberry juice, responded NO, I AM NOT READY. Pt asked if he would try some puree, and again he declined, shaking head, saying that he wasn't ready. Daughter who was present comforted patient, but also expressed concern to LUNCHROOM MONITOR about his readiness to start a diet. LUNCHROOM MONITOR contacted MD to discuss today's eval, patient's readiness for diet. MD stated that there is no other viable means to provide nutrition (NG, PEG or TPN are not viable for this patient), and questioned the nature of the swallowing difficulty. At issue is patient's ability to sustain and endure long enough to take PO with fatiguing which would put him at risk for aspirating. Patient on several trials has evidenced a patent swallow for at least up to puree consistency, however has tolerated only small amounts before fatiguing and refusing food. MD informed of these concerns, recommended that he be started on a diet of Puree and Thin liquids, and be given multiple small meals as tolerated through day to provide nutrition. LUNCHROOM MONITOR stated that follow through would be done with nursing regarding this recommendation and strategies (SEE Additional modifications to Solid Foods above). Frequency/Duration: Date Range for Service Req: Timeline to reassess: Medical Staff Services Manager Clinican/Clinical Fellow: No Supervisory Statement: I have reviewed and agree with the student/clinical fellow's documentation: N/A Speech Language Pathologist: Jenny Lawrence M.A., [facility])-LUNCHROOM MONITOR
--- NOTE | 2022-02-17 14:28 | HO.PM.IMPN ---
Subjective Subjective Date of Service: 02/18/22 Interval History: patient awake this morning recognize daughter at bedside, following commands able to cough but unable to clear his throat noted to have chest congestion and pooling of secretions back of throat , denies chest pain, seen by speech therapist they recommend pureed with thin liquids by tsp only recommend small meals and small amount of 4 all liquids and multiple intervals. Review of Systems Review of Systems: Yes all other systems are reviewed and are negative Physical Exam Vital Signs: Vital Signs: Last Vital Signs Temp 96.9 F 02/17/22 11:21 Pulse 96 02/17/22 11:21 Resp 33 H 02/17/22 11:21 BP 125/58 L 02/17/22 11:21 Pulse Ox 94 02/17/22 11:21 O2 Del Method 02/17/22 11:21 O2 Flow Rate 5 02/17/22 07:58 FiO2 40 02/15/22 23:58 BMI result Body Mass Index 33.5 Const: Other: General awake alert, noted to be tachypneic, mild respiratory distress. Neck supple no JVD. CVS regular rate rhythm, Respiratory lungs tachypneic, bibasilar crackles, expiratory wheeze, diminished breath sound, no use of accessory muscles Gastrointestinal abdomen soft, distended, nontender, bowel sounds audible, no guarding , no rigidity. Extremities b/l edema. Neuro speech clear. skin rash upper extremity psych poor insight Objective Data Active Medications Albuterol/Ipratropium (Albuterol/Iprat 2.5/0.5mg 3 Ml Ampul.Neb) 3 ml INHALE RQ6H WHILE AWAKE [facility] Aripiprazole (Aripiprazole 2 Mg Tablet) 2 mg PO BID [facility] Last Admin: 02/17/22 07:51 Dose: Not Given Documented By: LEISA Non-Admin Reason: NPO Benztropine Mesylate (Benztropine Mesylate 1 Mg Tablet) 1 mg PO BID [facility] Last Admin: 02/17/22 07:51 Dose: Not Given Documented By: LEISA Non-Admin Reason: NPO Bisacodyl (Bisacodyl 10 Mg Supp.Rect) 10 mg [place] DAILY PRN PRN Reason: Constipation Dextrose (Dextrose 50 % 25 Gm/50 Ml Syringe) 25 gm IVPUSH Q15M PRN; Protocol PRN Reason: per Hypoglycemia Standing Ord. Donepezil HCl (Donepezil Hcl 10 Mg Tablet) 10 mg PO DAILY [facility] Last Admin: 02/17/22 07:52 Dose: Not Given Documented By: LEISA Non-Admin Reason: NPO Escitalopram Oxalate (Escitalopram Oxalate 20 Mg Tablet) 20 mg PO DAILY [facility] Last Admin: 02/17/22 07:52 Dose: Not Given Documented By: LEISA Non-Admin Reason: NPO Fluticasone Propionate (Fluticasone Propionate Nasal 16 Gm [place]) 1 spray NOSTRIL-B BID [facility] Last Admin: 02/17/22 09:57 Dose: 1 spray Documented By: LEISA Fluticasone/Vilanterol (Fluticasone/Vilanterol 100/25 Blst.W.Dev) 1 puff INHALE RDAILY [facility] Last Admin: 02/17/22 08:36 Dose: Not Given Documented By: BLASCL Non-Admin Reason: med unavail pharmacy called Furosemide (Furosemide 20 Mg Tablet) 20 mg PO DAILY [facility]; Protocol Last Admin: 02/17/22 07:52 Dose: Not Given Documented By: LEISA Non-Admin Reason: NPO Glucose (Glucose Gel 15 Gm Gel..Gram.) 15 gm PO Q15M PRN; Protocol PRN Reason: per Hypoglycemia Standing Ord. Meropenem 1 gm/ Sodium (Chloride) 100 mls @ 200 mls/hr IV Q8H [facility] Last Infusion: 02/17/22 10:35 Dose: 0 mls/hr Documented By: LEISA Dextrose (D10) 1,000 mls @ 20 mls/hr IVCONT .Q24H [facility] Last Admin: 02/16/22 18:28 Dose: 20 mls/hr Documented By: GOMEZISRUDY Insulin Human Lispro (Insulin Lispro 100 Unit/Ml 3 Ml Vial) 0 unit SUBCUT Q6H [facility]; Protocol Last Admin: 02/17/22 11:35 Dose: Not Given Documented By: LEISA Non-Admin Reason: No Insulin Coverage Lactulose (Lactulose 20 Gm/30 Ml Solution) 20 gm PO BID PRN PRN Reason: Constipation Magnesium Hydroxide (Milk Of Magnesia 30 Ml Oral.Susp) 30 ml PO BEDTIME PRN PRN Reason: Constipation Midodrine (Midodrine Hcl 10 Mg Tablet) 10 mg PO TID [facility] Last Admin: 02/17/22 07:52 Dose: Not Given Documented By: LEISA Non-Admin Reason: NPO Nystatin (Nystatin Powder 15 Gm Bottle) 1 appl TOPICAL BID [facility]; Protocol Last Admin: 02/17/22 09:57 Dose: 1 appl Documented By: LEISA Spironolactone (Spironolactone 25 Mg Tablet) 50 mg PO DAILY [facility]; Protocol Last Admin: 02/17/22 07:52 Dose: Not Given Documented By: LEISA Non-Admin Reason: NPO Trazodone HCl (Trazodone Hcl 50 Mg Tablet) 150 mg PO BEDTIME PRN PRN Reason: Sleep Labs CBC & Chem 7: 02/18/22 07:04 02/18/22 07:04 Labs: Laboratory Results - last 24 hr 02/16/22 02/16/22 02/16/22 15:18 18:22 23:27 POC Glucose 93 88 95 02/17/22 02/17/22 05:26 11:23 POC Glucose 94 95 Microbiology Microbiology Results: Microbiology 02/14/22 23:27 Urine Culture - Preliminary Urine clean catch - Urine cantu top Gram negative rubi Gram positive cocci 02/14/22 23:27 Gram Stain - Final Ascites Fluid Anaerobic Culture - Preliminary No growth to date. Body Fluid Culture - Final No growth after 2 days 02/14/22 22:06 Blood Culture - Preliminary Blood - Venous No growth after 48 hours. 02/14/22 22:07 Blood Culture - Preliminary Blood - Venous No growth after 48 hours. Assessment and Plan (1) Acute kidney injury superimposed on CKD: Status: Acute Plan 71 year old male with Past medical history of? paraplegia, neurogenic bladder, type II DM ,dementia,? hypertension,? hyperlipidemia, CVA, BPH, CKD, COPD/emphysema CAD ([place] s/p stenting) s/p CABG x4, K[facility]AN, decompensated cirrhosis with esophageal varices, ascites, hepatic encephalopathy and liver lesions, lung nodule and recent diagnosis of COVID-19 infection? sent from half-way facility due to shortness of breath,? was schedule for paracentesis tomorrow.?? On arrival to the emergency room? patient tachypneic, hypoxic requiring CPAP support, underwent bedside? paracentesis,?1 L of fluid was drained, Laboratory data significant for? WBC 20, hemoglobin 12.2, hematocrit 35.3, serum bicarb 21, lactic acid 2.6, magnesium 1.5, AST 38, alk-phos 132, albumin 2.3. patient admitted to ICU since patient was noted to be hypotensive with poor response to IV fluid resuscitation he was placed on empiric antibiotics for SBP, he was treated with IV albumin, midodrine, patient blood pressure and mental status improved but he remained lethargic,his peritoneal fluid was not suggestive of SBP, his ammonia level was normal patient was subsequently transferred to intermediate care unit, he was NPO as per speech therapy and all his psych medications were on hold including Abilify, Cogentin, Aricept, Lexapro and his diuretics were on hold. Acute on chronic hypoxia/ fluid overload , oxygenation 88- 89% on room air noted to have tachypnea this morning , with bilateral expiratory wheeze, crackles and diminished breath sound question related to fluid overload , COPD exacerbation and anxiety iv Lasix 40mg x2 and 20mg x1 given, resume anxiolytics, use BiPAP prn, updraft treatment q.i.d. scheduled, monitor i/os , follow BMP status post IV albumin in ICU x4 bags, monitor albumin VBG showed ph 7.62, pCO2 27, bicarb 28, case discussed with Dr. Schmidt he recommend to use nasal BiPAP, but patient did not tolerate will resume anxiolytics repeat VBG in 3-4 hrs will check checks x-ray BNP, troponin and BMP Hypotension likely secondary to intravascular volume depletion with fluid shifts secondary to hypoalbuminemia and ascites. Improved on colloidal support and midodrine. will resume home medications Coreg, Isordil and diuretics since patient noted to be hypertensive and tachycardic, DC midodrine Acute renal failure on chronic kidney disease secondary to hepatorenal syndrome, creatinine improved, will repeat BMP while being diuresed with IV Lasix. Hepatic cirrhosis, likely secondary to nonalcoholic steatohepatitis.? On recurrent paracentesis every few weeks.? Status post drainage of approximately 1 L in emergency room.? No evidence of spontaneous bacterial peritonitis.? Likely underlying hepatic malignancy, workup to continue on outpatient basis. History of esophageal varices, resume Coreg will resume lasix and spironolactone Prior history of ESBL positive SBP on IV meropenem, follow final ascites fluid cultures if negative will DC antibiotics. UTI urine culture positive for Gram-negative rubi and Gram-positive cocci greater than 100,000 follow final urine culture continue IV meropenem as above Underlying dementia unspecified.? daughter at bedside feels patient has improved since admission at baseline patient can recognize family, is more awake alert, but has intermittent confusion history of CVA/neurogenic bladder and paraplegia patient has not ambulated since 1982, currently residing at nursing facility Seen by speech, there was concern for aspiration, case discussed with patient's daughter HCP at bedside she agreed to place patient on pureed and thin liquid diet , she is aware of risk of aspiration resume home medication BuSpar, trazodone , Aricept, Lexapro and Abilify Thrombocytopenia, chronic,/ elevated INR due to liver disease, no active bleeding noted follow CBC.? hyperlipidemia will resume Lipitor Prophylaxis: intermittent pneumatic compression, elevated INR 2.2. code status DNR DNI patient will need continued inpatient hospitalization due to acute respiratory failure with high tachypnea, fluid overload Quality Stroke Does the patient have a stroke diagnosis?: No VTE Prior VTE?: No VTE Risk Level:: Medical - moderate - high VTE Device Contraindication: Patient Refused VTE Drug Contraindication: N/A - Med Ordered
[2022-02-17] MEDS: Albuterol/Iprat 2.5/0.5MG 3 ML AMPUL.NEB INHALE ×2 (14:31→19:44)
[2022-02-17 14:50] LABS: Venous Blood Gas Refer to POC result
[2022-02-17 14:57] LABS: VBG Base Excess 7.3 mmol/L; VBG HCO3 28 mmol/L (22-26); VBG pCO2 27 mmHg; VBG pH 7.62 (7.32-7.43); VBG pO2 207 mmHg
[2022-02-17] MEDS: ARIPiprazole 2 MG TABLET PO (15:24)
[2022-02-17] MEDS: Escitalopram Oxalate 20 MG TABLET PO (15:24)
[2022-02-17] MEDS: Midodrine HCl 10 MG TABLET PO (15:25)
[2022-02-17] MEDS: Morphine Sulfate 2 MG/ML CARTRIDGE IVPUSH (16:03)
[2022-02-17 16:45] LABS: Anion Gap 14 (12-20); Blood Urea Nitrogen 23 mg/dL (9-16); Calcium 8.8 mg/dL (8.4-10.2); Carbon Dioxide 24 mmol/L (22-29); Chloride 105 mmol/L (96-108); Creatinine Clr Calc Pharmacy 86.3; Estimated Glomerular Filt Rate > 60; Glucose Random 99 mg/dL (60-115); Potassium 3.3 mmol/L (3.3-5.1); Sodium 140 mmol/L (135-145)
[2022-02-17] MEDS: Metoprolol Tartrate 5 MG/5 ML VIAL 2.5 MG IV (16:45)
[2022-02-17 17:24] LABS: Glucose, Whole Blood 87 mg/dL (60-115)
[2022-02-17] MEDS: Potassium Chloride/H20 10 MEQ/100 ML PIGGYBACK 100 MEQ IV ×2 (18:11→21:51)
[2022-02-17] MEDS: Dextrose 10 % 1,000 ML 20 ML IVCONT (18:17)
[2022-02-17] MEDS: carvediloL 12.5 MG TABLET PO (18:26)
[2022-02-17 19:20] LABS: VBG Base Excess 6.6 mmol/L; VBG HCO3 27 mmol/L (22-26); VBG pCO2 27 mmHg; VBG pO2 60 mmHg
[2022-02-17 19:24] LABS: Venous Blood Gas Refer to POC result
[2022-02-17 20:11] LABS: Troponin-I High Sensitivity 225.1 ng/L (<3.5-35.0)
[2022-02-17 20:14] LABS: Anion Gap 14 (12-20); Blood Urea Nitrogen 24 mg/dL (9-16); Calcium 8.9 mg/dL (8.4-10.2); Carbon Dioxide 27 mmol/L (22-29); Chloride 104 mmol/L (96-108); Creatinine Clr Calc Pharmacy 87.2; Estimated Glomerular Filt Rate > 60; Glucose Random 101 mg/dL (60-115); Potassium 3.1 mmol/L (3.3-5.1); Sodium 142 mmol/L (135-145)
[2022-02-17] MEDS: Acetaminophen 325 MG TABLET 650 MG PO (21:51)
[2022-02-17 22:37] LABS: Lactic Acid 2.2 mmol/L (0.5-2.0)
[2022-02-17 23:28] LABS: Glucose, Whole Blood 97 mg/dL (60-115)
[2022-02-17 23:56] LABS: B Type Natriuretic Peptide 1163 pg/mL (<100)
[2022-02-18] VITALS (11 sets, daily range): BP systolic 101–133; BP diastolic 51–62; PULSE 79–102; RESP 17–34; TEMP 36.2–37.1; O2SAT 85–95
[2022-02-18 00:12] LABS: Reflex Lactate? Lactic Acid Added
[2022-02-18 01:19] LABS: Troponin-I High Sensitivity 198.8 ng/L (<3.5-35.0)
[2022-02-18 03:16] LABS: Appearance Urine Clear; Color Urine Dark Yellow; Glucose Urine UA Negative (Negative); Leukocyte Esterase Urine Trace (Negative); Nitrite Urine Negative (Negative); PH 5.5 (5.0-9.0); UMIC TRIGGER UA YES; Urine Blood Small (1+) (Negative); Urine Ketones Trace mg/dL (Negative); Urine Protein 30 (1+) mg/dL (Neg-Trace)
[2022-02-18 03:18] LABS: Bacteria Urine None Seen (None Seen); Squamous Epithelial Cell Urine 0-2 /HPF (0-2); WBC Urine 0-5 /HPF (0-5)
[2022-02-18 06:20] LABS: Glucose, Whole Blood 99 mg/dL (60-115)
[2022-02-18] MEDS: Benztropine Mesylate 1 MG TABLET PO ×2 (07:36→20:17)
[2022-02-18] MEDS: ARIPiprazole 2 MG TABLET PO ×2 (07:36→20:17)
[2022-02-18] MEDS: busPIRone HCl 10 MG TABLET 30 MG PO ×2 (07:36→20:17)
[2022-02-18] MEDS: Escitalopram Oxalate 20 MG TABLET PO (07:36)
[2022-02-18] MEDS: Spironolactone 25 MG TABLET 50 MG PO (07:36)
[2022-02-18] MEDS: Potassium Chloride/H20 10 MEQ/100 ML PIGGYBACK 100 MEQ IV ×2 (07:36→09:11)
[2022-02-18] MEDS: Furosemide 20 MG TABLET PO (07:36)
[2022-02-18] MEDS: Fluticasone Propionate Nasal 16 GM SPRAY 1 SPRAY NOSTRIL-B ×2 (07:37→20:18)
[2022-02-18] MEDS: carvediloL 12.5 MG TABLET PO ×2 (07:37→20:17)
[2022-02-18] MEDS: Nystatin Powder 15 GM BOTTLE 1 APPL TOPICAL ×2 (07:37→20:18)
[2022-02-18 07:42] LABS: Hematocrit 28.3 % (42.0-52.0); Hemoglobin 9.4 g/dl (14.0-18.0); Mean Corpuscular HGB Conc 33.2 g/dl (31.0-36.0); Mean Corpuscular Volume 99.3 fL (80.0-98.0); Mean Platelet Volume 12.1 fL (9.4-12.4); Red Blood Count 2.85 X10*6/uL (4.60-5.80); Red Cell Distribution Width 14.7 % (11.0-16.0); White Blood Count 8.9 X10*3/uL (4.8-10.8)
[2022-02-18] MEDS: Albuterol/Iprat 2.5/0.5MG 3 ML AMPUL.NEB INHALE ×4 (07:48→18:58)
[2022-02-18 07:54] LABS: Platelet Count 50 X10*3/uL (160-400)
[2022-02-18 07:59] LABS: Alanine Aminotransferase 6 U/L (0-40); Albumin Level 2.8 g/dL (3.5-5.0); Alkaline Phosphatase 42 U/L (39-117); Anion Gap 13 (12-20); Aspartate Amino Transferase 18 U/L (5-37); Bilirubin Direct 1.2 mg/dL (0.0-0.5); Bilirubin Total 4.7 mg/dL (0.0-1.0); Blood Urea Nitrogen 26 mg/dL (9-16); Calcium 8.5 mg/dL (8.4-10.2); Carbon Dioxide 26 mmol/L (22-29); Chloride 106 mmol/L (96-108); Creatinine Clr Calc Pharmacy 101.6; Estimated Glomerular Filt Rate > 60; Glucose Random 110 mg/dL (60-115); Potassium 3.3 mmol/L (3.3-5.1); Sodium 142 mmol/L (135-145); Total Protein 4.9 g/dL (6.5-8.0)
[2022-02-18] MEDS: Furosemide 100 MG/10 ML VIAL 60 MG IVPUSH (09:07)
[2022-02-18] MEDS: Donepezil HCl 10 MG TABLET PO (09:11)
[2022-02-18] MEDS: Azithromycin 500 MG in 0.9 % Sodium Chloride 250 ML 125 MG IV (10:03)
--- NOTE | 2022-02-18 10:18 | PC.RT ---
pt sats 88% on 2L nc. placed pt on 5L oxymask to maintain spo2 of 90% nt sx several times for thick dark secrtions. pt had no relief. wob increased. pt noted to have thick brown globs of oral secrtions. notified.
[2022-02-18 12:19] LABS: Glucose, Whole Blood 111 mg/dL (60-115)
--- NOTE | 2022-02-18 12:53 | P.PNIM_ITS ---
Subjective Subjective Date of Service: 02/18/22 Interval History: patient awake alert feels better than yesterday still noted to have tachypnea, shortness of breath,thick yellow green secretions suctioned by respiratory therapist, noted to have 101.5 fever last night, with elevated lactic acid, this morning afebrile, denies headache, family at bedside, as per daughter patient is not on CPAP at home but is on updraft treatment Review of Systems [employer] no headache no dizziness CVS no chest pain GI no nausea no vomiting no abdominal pain Review of Systems: Yes all other systems are reviewed and are negative Physical Exam Vital Signs: Vital Signs: Last Vital Signs Temp 98 F 02/18/22 12:00 Pulse 79 02/18/22 12:00 Resp 18 02/18/22 12:00 BP 101/51 L 02/18/22 12:00 Pulse Ox 88 L 02/18/22 12:00 O2 Del Method 02/18/22 12:00 O2 Flow Rate 1.5 02/18/22 07:33 FiO2 23 02/17/22 15:49 BMI result Body Mass Index 33.5 Const: Other: General ? awake alert, noted to be tachypneic, no respiratory distress.? Neck? supple no JVD. CVS? regular rate rhythm, Respiratory lungs? tachypneic, bibasilar crackles, expiratory wheeze, diminished breath sound, no use of accessory muscles Gastrointestinal abdomen soft, distended, nontender, bowel sounds audible, no guarding , no rigidity. Extremities? edema bilateral lower extremity resolved Neuro? speech clear. skin rash upper extremity psych poor insight Objective Data Active Medications Acetaminophen (Acetaminophen 325 Mg Tablet) 650 mg PO Q12H PRN PRN Reason: Pain, Severe (Pain Scale 7-10) Last Admin: 02/17/22 21:51 Dose: 650 mg Documented By: LYDIA Albuterol/Ipratropium (Albuterol/Iprat 2.5/0.5mg 3 Ml Ampul.Neb) 3 ml INHALE RQ6H WHILE AWAKE [facility] Last Admin: 02/18/22 07:48 Dose: 3 ml Documented By: JERI Aripiprazole (Aripiprazole 2 Mg Tablet) 2 mg PO BID [facility] Last Admin: 02/18/22 07:36 Dose: 2 mg Documented By: LEISA Benztropine Mesylate (Benztropine Mesylate 1 Mg Tablet) 1 mg PO BID [facility] Last Admin: 02/18/22 07:36 Dose: 1 mg Documented By: LEISA Bisacodyl (Bisacodyl 10 Mg Supp.Rect) 10 mg [place] DAILY PRN PRN Reason: Constipation Buspirone HCl (Buspirone Hcl 10 Mg Tablet) 30 mg PO BID [facility] Last Admin: 02/18/22 07:36 Dose: 30 mg Documented By: LEISA Carvedilol (Carvedilol 12.5 Mg Tablet) 12.5 mg PO BID [facility]; Protocol Last Admin: 02/18/22 07:37 Dose: 12.5 mg Documented By: LEISA Dextrose (Dextrose 50 % 25 Gm/50 Ml Syringe) 25 gm IVPUSH Q15M PRN; Protocol PRN Reason: per Hypoglycemia Standing Ord. Donepezil HCl (Donepezil Hcl 10 Mg Tablet) 10 mg PO DAILY [facility] Last Admin: 02/18/22 09:11 Dose: 10 mg Documented By: LEISA Escitalopram Oxalate (Escitalopram Oxalate 20 Mg Tablet) 20 mg PO DAILY [facility] Last Admin: 02/18/22 07:36 Dose: 20 mg Documented By: LEISA Fluticasone Propionate (Fluticasone Propionate Nasal 16 Gm [place]) 1 spray NOSTRIL-B BID [facility] Last Admin: 02/18/22 07:37 Dose: 1 spray Documented By: LEISA Fluticasone/Vilanterol (Fluticasone/Vilanterol 100/25 Blst.W.Dev) 1 puff INHALE RDAILY [facility] Last Admin: 02/18/22 07:54 Dose: Not Given Documented By: JERI Non-Admin Reason: pt unable to do Glucose (Glucose Gel 15 Gm Gel..Gram.) 15 gm PO Q15M PRN; Protocol PRN Reason: per Hypoglycemia Standing Ord. Meropenem 1 gm/ Sodium (Chloride) 100 mls @ 200 mls/hr IV Q8H [facility] Last Infusion: 02/18/22 10:01 Dose: 0 mls/hr Documented By: LEISA Dextrose (D10) 1,000 mls @ 20 mls/hr IVCONT .Q24H [facility] Last Admin: 02/17/22 18:17 Dose: 20 mls/hr Documented By: LEISA Azithromycin 500 mg/ Sodium (Chloride) 250 mls @ 125 mls/hr IV Q24H [facility] Last Infusion: 02/18/22 12:10 Dose: 0 mls/hr Documented By: LEISA Insulin Human Lispro (Insulin Lispro 100 Unit/Ml 3 Ml Vial) 0 unit SUBCUT Q6H [facility]; Protocol Last Admin: 02/18/22 12:19 Dose: Not Given Documented By: LEISA Non-Admin Reason: No Insulin Coverage Lactulose (Lactulose 20 Gm/30 Ml Solution) 20 gm PO BID PRN PRN Reason: Constipation Magnesium Hydroxide (Milk Of Magnesia 30 Ml Oral.Susp) 30 ml PO BEDTIME PRN PRN Reason: Constipation Nystatin (Nystatin Powder 15 Gm Bottle) 1 appl TOPICAL BID [facility]; Protocol Last Admin: 02/18/22 07:37 Dose: 1 appl Documented By: LEISA Potassium Chloride (Potassium Chloride Er 20 Meq Tab.Er.Prt) 20 meq PO DAILY [facility] Last Admin: 02/18/22 07:38 Dose: Not Given Documented By: LEISA Non-Admin Reason: pt requires crushed meds Spironolactone (Spironolactone 25 Mg Tablet) 50 mg PO DAILY [facility]; Protocol Last Admin: 02/18/22 07:36 Dose: 50 mg Documented By: LEISA Trazodone HCl (Trazodone Hcl 50 Mg Tablet) 150 mg PO BEDTIME PRN PRN Reason: Sleep Labs CBC & Chem 7: 02/18/22 07:04 02/18/22 07:04 Labs: Laboratory Results - last 24 hr 02/17/22 02/17/22 02/17/22 14:46 16:14 17:20 MCV MCH MCHC RDW Plt Count MPV Absolute Nucleated RBC Nucleated RBC % (auto) VBG pH 7.62 H* VBG pCO2 27 VBG pO2 207 VBG HCO3 28 H VBG O2 Saturation 99.0 VBG Base Excess 7.3 Anion Gap 14 Estim Creat Clear Calc 86.3 Estimated GFR > 60 POC Glucose 87 Random Glucose 99 Lactic Acid Lactic Acid F/U @ 2Hr Calcium 8.8 D Total Bilirubin Direct Bilirubin AST ALT Alkaline Phosphatase Troponin I High Sens B-Natriuretic Peptide Total Protein Albumin Urine Color Urine Appearance Urine pH Ur Specific [place] Urine Protein Urine Glucose (UA) Urine Ketones Urine Blood Urine Nitrite Ur Leukocyte Esterase Urine RBC Urine WBC Ur Squamous Epith Cells Urine Bacteria Hyaline Casts 02/17/22 02/17/22 02/17/22 19:06 19:06 19:10 MCV MCH MCHC RDW Plt Count MPV Absolute Nucleated RBC Nucleated RBC % (auto) VBG pH 7.60 H* VBG pCO2 27 VBG pO2 60 VBG HCO3 27 H VBG O2 Saturation 94.0 VBG Base Excess 6.6 Anion Gap Estim Creat Clear Calc Estimated GFR POC Glucose Random Glucose Lactic Acid Lactic Acid F/U @ 2Hr Calcium Total Bilirubin Direct Bilirubin AST ALT Alkaline Phosphatase Troponin I High Sens 225.1 H* B-Natriuretic Peptide 1163 H Total Protein Albumin Urine Color Urine Appearance Urine pH Ur Specific [place] Urine Protein Urine Glucose (UA) Urine Ketones Urine Blood Urine Nitrite Ur Leukocyte Esterase Urine RBC Urine WBC Ur Squamous Epith Cells Urine Bacteria Hyaline Casts 02/17/22 02/17/22 02/17/22 19:10 22:04 23:24 MCV MCH MCHC RDW Plt Count MPV Absolute Nucleated RBC Nucleated RBC % (auto) VBG pH VBG pCO2 VBG pO2 VBG HCO3 VBG O2 Saturation VBG Base Excess Anion Gap 14 Estim Creat Clear Calc 87.2 Estimated GFR > 60 POC Glucose 97 Random Glucose 101 D Lactic Acid 2.2 H* Lactic Acid F/U @ 2Hr Calcium 8.9 Total Bilirubin Direct Bilirubin AST ALT Alkaline Phosphatase Troponin I High Sens B-Natriuretic Peptide Total Protein Albumin Urine Color Urine Appearance Urine pH Ur Specific [place] Urine Protein Urine Glucose (UA) Urine Ketones Urine Blood Urine Nitrite Ur Leukocyte Esterase Urine RBC Urine WBC Ur Squamous Epith Cells Urine Bacteria Hyaline Casts 02/18/22 02/18/22 02/18/22 00:24 00:48 00:48 MCV MCH MCHC RDW Plt Count MPV Absolute Nucleated RBC Nucleated RBC % (auto) VBG pH VBG pCO2 VBG pO2 VBG HCO3 VBG O2 Saturation VBG Base Excess Anion Gap Estim Creat Clear Calc Estimated GFR POC Glucose Random Glucose Lactic Acid 2.0 Lactic Acid F/U @ 2Hr Cancelled Calcium Total Bilirubin Direct Bilirubin AST ALT Alkaline Phosphatase Troponin I High Sens 198.8 H* D B-Natriuretic Peptide Total Protein Albumin Urine Color Urine Appearance Urine pH Ur Specific [place] Urine Protein Urine Glucose (UA) Urine Ketones Urine Blood Urine Nitrite Ur Leukocyte Esterase Urine RBC Urine WBC Ur Squamous Epith Cells Urine Bacteria Hyaline Casts 02/18/22 02/18/22 02/18/22 02:30 06:15 07:04 MCV 99.3 H MCH 33.0 MCHC 33.2 RDW 14.7 Plt Count 50 L MPV 12.1 Absolute Nucleated RBC 0.000 Nucleated RBC % (auto) 0.0 VBG pH VBG pCO2 VBG pO2 VBG HCO3 VBG O2 Saturation VBG Base Excess Anion Gap Estim Creat Clear Calc Estimated GFR POC Glucose 99 Random Glucose Lactic Acid Lactic Acid F/U @ 2Hr Calcium Total Bilirubin Direct Bilirubin AST ALT Alkaline Phosphatase Troponin I High Sens B-Natriuretic Peptide Total Protein Albumin Urine Color Dark Yellow Urine Appearance Clear Urine pH 5.5 Ur Specific [place] 1.020 Urine Protein 30 (1+) H Urine Glucose (UA) Negative Urine Ketones Trace Urine Blood Small (1+) H Urine Nitrite Negative Ur Leukocyte Esterase Trace H Urine RBC 6-10 H Urine WBC 0-5 Ur Squamous Epith Cells 0-2 Urine Bacteria None Seen Hyaline Casts 3-5 02/18/22 02/18/22 07:04 12:15 MCV MCH MCHC RDW Plt Count MPV Absolute Nucleated RBC Nucleated RBC % (auto) VBG pH VBG pCO2 VBG pO2 VBG HCO3 VBG O2 Saturation VBG Base Excess Anion Gap 13 Estim Creat Clear Calc 101.6 Estimated GFR > 60 POC Glucose 111 Random Glucose 110 Lactic Acid Lactic Acid F/U @ 2Hr Calcium 8.5 Total Bilirubin 4.7 H Direct Bilirubin 1.2 H AST 18 ALT 6 Alkaline Phosphatase 42 Troponin I High Sens B-Natriuretic Peptide Total Protein 4.9 L Albumin 2.8 L Urine Color Urine Appearance Urine pH Ur Specific [place] Urine Protein Urine Glucose (UA) Urine Ketones Urine Blood Urine Nitrite Ur Leukocyte Esterase Urine RBC Urine WBC Ur Squamous Epith Cells Urine Bacteria Hyaline Casts Microbiology Microbiology Results: Microbiology 02/14/22 23:27 Gram Stain - Final Ascites Fluid Anaerobic Culture - Preliminary No growth to date. Body Fluid Culture - Final No growth after 2 days 02/14/22 23:27 Urine Culture - Final Urine clean catch - Urine cantu top Pseudomonas aeruginosa Enterococcus faecium Assessment and Plan (1) Acute kidney injury superimposed on CKD: Status: Acute Plan 71 year old male with Past medical history of? paraplegia, neurogenic bladder, type II DM ,dementia,? hypertension,? hyperlipidemia, CVA, BPH, CKD, COPD/emphysema CAD ([place] s/p stenting) s/p CABG x4, [facility], decompensated cirrhosis with esophageal varices, ascites, hepatic encephalopathy and liver lesions, lung nodule and recent diagnosis of COVID-19 infection? sent from longterm facility due to shortness of breath,? was schedule for paracentesis tomorrow.?? On arrival to the emergency room? patient tachypneic, hypoxic requiring CPAP support, underwent bedside? paracentesis,?1 L of fluid was drained, Laboratory data significant for? WBC 20, hemoglobin 12.2, hematocrit 35.3, serum bicarb 21, lactic acid 2.6, magnesium 1.5, AST 38, alk-phos 132, albumin 2.3. patient admitted to ICU since patient was noted to be hypotensive with poor response to IV fluid resuscitation he was placed on empiric antibiotics for SBP, he was treated with IV albumin, midodrine, patient blood pressure and mental status improved but he remained lethargic,his peritoneal fluid was not suggestive of SBP, his ammonia level was normal patient was subsequently transferred to intermediate care unit, he was NPO as per speech therapy and all his psych medications were on hold including Abilify, Cogentin, Aricept, Lexapro and his diuretics were on hold. Acute on chronic hypoxia/ fluid overload , oxygenation 88- 89% on room air clinically improved, persistent shortness of breath and tachypnea chest x-ray showed interval increase in pulmonary vascular congestion and patchy infiltrates in the right lung, elevated BNP , troponin elevated but flat likely due to tachycardia and hypoxia give IV Lasix 60 mg,DC by mouth Lasix, continue Aldactone , replace potassium sepsis due to pneumonia continue IV meropenem, add azithromycin to cover atypicals, frequent suctioning, follow blood cultures lactic acid normalized, no recurrent fevers normal WBC Hypotension likely secondary to intravascular volume depletion with fluid shifts secondary to hypoalbuminemia and ascites. Improved on colloidal support and midodrine. Acute renal failure on chronic kidney disease secondary to hepatorenal syndrome, creatinine improved, will repeat BMP while being diuresed with IV Lasix. Hepatic cirrhosis, likely secondary to nonalcoholic steatohepatitis.? On re current paracentesis every few weeks.? Status post drainage of approximately 1 L in emergency room.? No evidence of spontaneous bacterial peritonitis.? Likely underlying hepatic malignancy, workup to continue on outpatient basis. History of esophageal varices, continue Coreg, lasix and spironolactone will add protein shakes for low albumin/ give IV albumin Prior history of ESBL positive SBP on IV meropenem, ascites fluid cultures negative, continue IV antibiotic for UTI and pneumonia UTI urine culture grew Pseudomonas and Enterococcus, Enterococcus sensitive to nitrofurantoin and vancomycin, and Pseudomonas sensitive to meropenem, will add IV vanco will consult ID Underlying dementia unspecified.? daughter at bedside feels patient has improved since admission at baseline patient can recognize family, is more awake alert, but has intermittent confusion history of CVA/neurogenic bladder and paraplegia patient has not ambulated since 1982, currently residing at nursing facility Seen by speech, continue pureed and thin liquid diet continue home medication BuSpar, trazodone , Aricept, Lexapro and Abilify Thrombocytopenia, chronic,/ elevated INR due to liver disease, no active bleeding noted follow CBC.? hyperlipidemia on Lipitor Prophylaxis: intermittent pneumatic compression, elevated INR 2.2. code status DNR DNI patient will need continued inpatient hospitalization due to acute respiratory failure, UTI, fluid overload and pneumonia Quality Stroke Does the patient have a stroke diagnosis?: No VTE Prior VTE?: No VTE Risk Level:: Medical - moderate - high VTE Device Contraindication: Patient Refused VTE Drug Contraindication: N/A - Med Ordered
[2022-02-18] MEDS: Albumin Human 25 % 100 ML IV ×2 (13:24→14:37)
[2022-02-18] MEDS: Potassium Chloride Packet 20 MEQ PACKET 40 MEQ PO (13:24)
[2022-02-18] MEDS: Furosemide 40 MG/4 ML VIAL IVPUSH (16:17)
[2022-02-18] MEDS: guaiFENesin 100 MG/5 ML LIQUID 10 ML PO ×2 (16:17→20:17)
[2022-02-18 17:14] LABS: Glucose, Whole Blood 94 mg/dL (60-115)
[2022-02-18] MEDS: Dextrose 10 % 1,000 ML 20 ML IVCONT (17:48)
[2022-02-18] MEDS: traZODone HCL 50 MG TABLET 150 MG PO (20:18)
[2022-02-19] VITALS (14 sets, daily range): BP systolic 114–160; BP diastolic 56–89; PULSE 77–100; RESP 18–34; TEMP 35.6–37; O2SAT 87–100
[2022-02-19 00:56] LABS: Glucose, Whole Blood 115 mg/dL (60-115)
[2022-02-19] MEDS: vancomycin HCL 1,000 MG in 0.9 % Sodium Chloride 250 ML 270 MG IV (02:30)
[2022-02-19 06:08] LABS: Glucose, Whole Blood 104 mg/dL (60-115)
[2022-02-19 07:10] LABS: Hemoglobin 10.1 g/dl (14.0-18.0); Mean Corpuscular HGB Conc 33.7 g/dl (31.0-36.0); Mean Corpuscular Hemoglobin 33.1 pg (27.0-33.0); Mean Corpuscular Volume 98.4 fL (80.0-98.0); Mean Platelet Volume 12.1 fL (9.4-12.4); Red Blood Count 3.05 X10*6/uL (4.60-5.80); Red Cell Distribution Width 14.7 % (11.0-16.0); White Blood Count 9.5 X10*3/uL (4.8-10.8)
[2022-02-19 07:12] LABS: Platelet Count 58 X10*3/uL (160-400)
[2022-02-19 07:28] LABS: Anion Gap 15 (12-20); Blood Urea Nitrogen 31 mg/dL (9-16); Calcium 8.9 mg/dL (8.4-10.2); Carbon Dioxide 28 mmol/L (22-29); Chloride 107 mmol/L (96-108); Creatinine Clr Calc Pharmacy 111.5; Estimated Glomerular Filt Rate > 60; Glucose Random 111 mg/dL (60-115); Potassium 3.5 mmol/L (3.3-5.1); Sodium 146 mmol/L (135-145)
[2022-02-19 07:34] LABS: B Type Natriuretic Peptide 1150 pg/mL (<100)
[2022-02-19] MEDS: Albuterol/Iprat 2.5/0.5MG 3 ML AMPUL.NEB INHALE ×2 (08:01→14:23)
--- NOTE | 2022-02-19 08:42 | PHA.PROG ---
Admission Date/Time: February 15, 2022 00:41 Indication: OTHER Weight in k.2 kg Serum Creatinine - Last 168 Hours 02/14/22 02/15/22 02/16/22 22:07 03:43 05:19 Creatinine 1.09 1.46 H 1.36 02/17/22 02/17/22 02/18/22 16:14 19:10 07:04 Creatinine 0.93 0.92 0.79 02/19/22 06:44 Creatinine 0.72 Estimated CrCl and GFR - Last 168 Hours 02/14/22 02/15/22 02/16/22 22:07 03:43 05:19 Estim Creat Clear Calc 74.4 54.2 59.2 Estimated GFR > 60 47 51 02/17/22 02/17/22 02/18/22 16:14 19:10 07:04 Estim Creat Clear Calc 86.3 87.2 101.6 Estimated GFR > 60 > 60 > 60 02/19/22 06:44 Estim Creat Clear Calc 111.5 Estimated GFR > 60 Vancomycin Loading Dose: 2000 Current Vancomycin Dosing Regimen: 100 Q 12 Vancomycin Monitoring using AUC goal of 400 - 600 range with trough as surrogate marker: 514 Date and Time for next Vancomycin Level to be drawn: 02/19 @ 2200 Pharmacist Comments on Vancomycin Plan: MOVED UP TIME OF DOSE FOR #3 TO 12 INSTEAD OF 1400. THIS MAKES THE TROUGH DUE BEFORE PHARMACY CLOSES AT 2200 ON 01/19 Vancomycin dosing will take advantage of [employer] as a clinical decision support tool that uses Bayesian modeling to calculate individual patient's pharmacokinetic parameters and forecast the patient's drug concentration time course with the target goal AUC 24 range of 400 - 600 mg/L/hr.
[2022-02-19] MEDS: Nystatin Powder 15 GM BOTTLE 1 APPL TOPICAL ×2 (09:25→21:00)
[2022-02-19] MEDS: Furosemide 100 MG/10 ML VIAL 80 MG IVPUSH (09:30)
--- NOTE | 2022-02-19 10:00 | CA_ITS ---
Transthoracic Echocardiogram Patient (Last, First, Middle): Franklin Pierce J Gender: Male Date of : 1950 Age: 71 Procedure Date: 02/19/2022 Procedure Type: Transthoracic Echocardiogram Location: [facility] [place] Height: 177.8 cm Weight: 106.14 kg BSA: 2.23 m2 Heart Rate: bpm BP: 160 / 71 mmHg Egg Worker: Referring MD: Nic Sanchez MD Symptoms: chf Study Quality: Fair ECG Rhythm: Sinus with extra beats Conclusions: - The left ventricular systolic function is mildly decreased. The calculated ejection fraction is 50% by biplane method. - The mid anteroseptal segment is hypokinetic. - No obvious valvular pathology seen on this study. Findings Procedure Information Contrast agent, definity, is being given per protocol without apparent complications. Left Ventricle Normal left ventricular cavity size. There is moderately increased left ventricular wall thickness. The left ventricular systolic function is mildly decreased. The calculated ejection fraction is 50% by biplane method. There is evidence of regional wall motion abnormalities. Diastolic function is normal for age. Wall Motion Rest Echo Findings The mid anteroseptal segment is hypokinetic. Right Ventricle Mildly increased right ventricular cavity size. There is normal right ventricular systolic function. Atria Both atria are normal in size. Aortic Valve There is a normal trileaflet aortic valve. There is mild thickening of the aortic valve. There is no aortic valve stenosis. There is no aortic valve regurgitation. Mitral Valve There is mild anterior mitral leaflet thickening. There is mild mitral annular calcification. There is trace mitral valve regurgitation. There is no mitral valve stenosis. Pulmonic Valve The pulmonic valve is likely normal. Tricuspid Valve There is trace tricuspid valve regurgitation. There is no evidence of pulmonary hypertension. Great Vessels The aortic annulus, sinuses of valsalva, and asc aorta are normal in size. Venous The inferior vena cava is normal in size and collapses greater than 50% with inspiration. Pericardium/Pleural There is no evidence of pericardial effusion. Prior Study Comparison No prior study available for comparison. Recommendations, Care & Conclusions No obvious valvular pathology seen on this study. Measurements 2D Linear Measurements IVSd: 1.30 0.6-0.9/0.6-1.0 cm LVIDd: 5.20 3.9-5.3/4.2-5.9 cm LVIDd Index: 2.33 2.4-3.2/2.2-3.1 cm/m2 LVIDs: 3.22 2.0-3.6 cm LVPWd: 1.22 0.7-1.1 cm Ao Root: 3.20 2.1-3.5 cm LA Diam: 3.90 2.7-3.8/3.0-4.0 cm LAIDs Index: 1.75 1.5-2.3 cm/m2 LV Mass: 332.27 67-162/88-224 g LV Mass Index: 149.00 43-95/49-115 g/m2 LVOT Diam: 2.20 3.0+(-)1.3 cm 2D Systolic Function EF 4C: 54.50 >55% EF 2C: 44.60 >55% EF BiP: 49.70 >55% Mitral Valve MV Pk E: 1.11 MV PK A: 0.96 MV Decel Time: 163.00 E/A: 1.20 E'Lateral: 10.00 E'Medial: 7.62 E/E' Med: 14.60 E/E' Lat: 11.10 PHT: 48.00 MVA PHT: 4.58 Decel Schuyler: 6.80 Aortic Valve AoV Pk Erasmo: 1.38 AoV Mn Erasmo: 0.74 AoV VTI: 0.26 AoV Pk Grad: 8.00 Aov Mn Grad: 3.00 LITO Cont.VTI: 2.96 LVOT LVOT Pk Erasmo: 0.98 LVOT Mn Erasmo: 0.61 LVOT VTI: 0.20 LVOT Pk Grad: 4.00 LVOT Mn Grad: 2.00 LVOT Diam: 2.20 LVOT Area: 3.80 Diastolic Function MV Pk E: 1.11 MV Pk A: 0.96 E/A: 1.20 E'Medial: 7.62 E/E' Med: 14.60 E' Laterial: 10.00 E/E' Lat: 11.10 Right Ventricle TAPSE (mm): 18.00 TVS' Erasmo: 11.00 Tricuspid Valve TR Pk Erasmo: 2.42 TR Pk Grad: 23.00 RA Press: 3.00 RVSP: 26.00 Great Vessels Aorta Ao Root-2D: 3.20 2.0-3.7 cm Ao Asc: 3.30 2.1-3.4 cm Pulmonary Valve PV Pk Erasmo: 0.98 Peak PV Grad: 4.00 Updated in Other Vendor System with Status of Final Ramakrishna Guo MD electronically signed on 02/19/2022 12:21:59 PM with status of Final
--- NOTE | 2022-02-19 10:34 | P.CONCA_ITS ---
History of Present Illness History of Present Illness Date of Service: 02/19/22 Chief complaint: Acute Respiratory Failure Narrative: This is a cardiology consultation regarding possible congestive heart failure. Discussed with Dr. Sanchez who requested the consultation. Patient himself is completely nonverbal and not able to give any information whatsoever. It seems that patient has numerous comorbidities including paraplegia, dementia and numerous others listed. He has a history of coronary bypass surgery as well as PCI. He also has a history of decompensated cirrhosis/esophageal varices, ascites, encephalopathy among others. He was admitted for shortness of breath. Apparently had paracentesis. Then was in ICU and was hypotensive. Had IV fluid resuscitation, IV albumin, midodrine extra. Then he was moved to the floor. Here he has been persistently short of breath as well as tachypneic and there is a question of pulmonary edema. Hence we have been asked to see him. Patient himself unable to provide any information whatsoever. Review of Systems Review of Systems: Unable to obtain review of systems from patient. Due to mental status. [facility] Past Medical History Medical History (Updated 02/19/22 @ 10:42 by Ramakrishna Guo MD) BPH (benign prostatic hyperplasia) CKD (chronic kidney disease) COVID-19 CVA (cerebral vascular accident) Decompensated liver disease Dementia Diabetes Esophageal varices Hyperlipidemia Hypertension Liver lesion Lung nodule KHAN (nonalcoholic steatohepatitis) Neurogenic bladder Paraplegia Family History Pertinent family history: Unable to obtain due to patient's mental status. Surgical History Surgical History (Updated 02/15/22 @ 02:25 by Diane Lozano NP) Hx of CABG Social History Social History Currently Displaying Signs/Symptoms of Drug Intoxication Withdrawal: No Advance Directives: No service: Yes Current occupational status: retired Meds Allergies Allergy/AdvReac Type Severity Reaction Status Date / Time metformin Allergy Unknown Verified 02/15/22 03:03 Sulfa (Sulfonamide Allergy Unknown Verified 02/15/22 03:03 Antibiotics) BACTRIM Allergy Unknown Rash Uncoded 02/15/22 03:03 Active Medications: Current Medications Acetaminophen (Acetaminophen 325 Mg Tablet) 650 mg PO Q12H PRN PRN Reason: Pain, Severe (Pain Scale 7-10) Last Admin: 02/17/22 21:51 Dose: 650 mg Albuterol/Ipratropium (Albuterol/Iprat 2.5/0.5mg 3 Ml Ampul.Neb) 3 ml INHALE RQ6H WHILE AWAKE [facility] Last Admin: 02/19/22 08:01 Dose: 3 ml Aripiprazole (Aripiprazole 2 Mg Tablet) 2 mg PO BID [facility] Last Admin: 02/19/22 09:24 Dose: Not Given Benztropine Mesylate (Benztropine Mesylate 1 Mg Tablet) 1 mg PO BID [facility] Last Admin: 02/19/22 09:24 Dose: Not Given Bisacodyl (Bisacodyl 10 Mg Supp.Rect) 10 mg LA DAILY PRN PRN Reason: Constipation Buspirone HCl (Buspirone Hcl 10 Mg Tablet) 30 mg PO BID [facility] Last Admin: 02/19/22 09:24 Dose: Not Given Carvedilol (Carvedilol 12.5 Mg Tablet) 12.5 mg PO BID [facility]; Protocol Last Admin: 02/19/22 09:24 Dose: Not Given Dextrose (Dextrose 50 % 25 Gm/50 Ml Syringe) 25 gm IVPUSH Q15M PRN; Protocol PRN Reason: per Hypoglycemia Standing Ord. Donepezil HCl (Donepezil Hcl 10 Mg Tablet) 10 mg PO DAILY [facility] Last Admin: 02/19/22 09:24 Dose: Not Given Escitalopram Oxalate (Escitalopram Oxalate 20 Mg Tablet) 20 mg PO DAILY [facility] Last Admin: 02/19/22 09:24 Dose: Not Given Fluticasone Propionate (Fluticasone Propionate Nasal 16 Gm [place]) 1 spray NOSTRIL-B BID [facility] Last Admin: 02/19/22 09:24 Dose: Not Given Fluticasone/Vilanterol (Fluticasone/Vilanterol 100/25 Blst.W.Dev) 1 puff INHALE RDAILY [facility] Last Admin: 02/19/22 08:16 Dose: Not Given Glucose (Glucose Gel 15 Gm Gel..Gram.) 15 gm PO Q15M PRN; Protocol PRN Reason: per Hypoglycemia Standing Ord. Guaifenesin (Guaifenesin 100 Mg/5 Ml Liquid) 10 ml PO TID [facility] Last Admin: 02/19/22 09:24 Dose: Not Given Meropenem 1 gm/ Sodium (Chloride) 100 mls @ 200 mls/hr IV Q8H [facility] Last Infusion: 02/19/22 10:04 Dose: Infused Bumetanide 25 mg/ IV (Miscellaneous Supplies) 100 mls @ 4 mls/hr IVCONT .Q24H [facility] Potassium Chloride (Potassium Chloride/H20) 10 meq in 100 mls @ 100 mls/hr IV Q1H [facility] Stop: 02/19/22 12:14 Albumin Human (Kedbumin 25 %) 100 mls @ 100 mls/hr IV Q1H [facility] Stop: 02/19/22 12:29 Insulin Human Lispro (Insulin Lispro 100 Unit/Ml 3 Ml Vial) 0 unit SUBCUT Q6H [facility]; Protocol Last Admin: 02/19/22 05:17 Dose: Not Given Lactulose (Lactulose 20 Gm/30 Ml Solution) 20 gm PO BID PRN PRN Reason: Constipation Magnesium Hydroxide (Milk Of Magnesia 30 Ml Oral.Susp) 30 ml PO BEDTIME PRN PRN Reason: Constipation Morphine Sulfate (Morphine Sulfate 2 Mg/Ml Cartridge) 2 mg IVPUSH Q4H PRN; Protocol PRN Reason: sob Nystatin (Nystatin Powder 15 Gm Bottle) 1 appl TOPICAL BID [facility]; Protocol Last Admin: 02/19/22 09:25 Dose: 1 appl Pharmacy Consult (Consult Rx Vancomycin Dosing) 1 each MISCELLANE DAILY PRN PRN Reason: Consult order Potassium Chloride (Potassium Chloride Er 20 Meq Tab.Er.Prt) 20 meq PO DAILY [facility] Last Admin: 02/19/22 09:24 Dose: Not Given Trazodone HCl (Trazodone Hcl 50 Mg Tablet) 150 mg PO BEDTIME PRN PRN Reason: Sleep Last Admin: 02/18/22 20:18 Dose: 150 mg Home Medications Medication Instructions Recorded Confirmed Last Taken Type acetaminophen 325 mg tablet 650 mg PO Q6H PRN Pain 02/15/22 02/15/22 Unknown History aripiprazole 2 mg tablet (Abilify) 2 mg PO BID 02/15/22 02/15/22 Unknown History artificial tears solution eye drops 1 drp ophthalmic (eye) BID 02/15/22 02/15/22 Unknown History atorvastatin 20 mg tablet 20 mg PO BEDTIME 02/15/22 02/15/22 Unknown History benztropine 1 mg tablet 1 mg PO BID 02/15/22 02/15/22 Unknown History bisacodyl 10 mg rectal suppository 10 mg LA DAILY PRN Constipation 02/15/22 02/15/22 Unknown History buspirone 30 mg tablet 30 mg PO BID 02/15/22 02/15/22 Unknown History carboxymethylcellulose sodium 0.5 1 drp ophthalmic (eye) QID 02/15/22 02/15/22 Unknown History % eye drops carvedilol 12.5 mg tablet 12.5 mg PO DAILY 02/15/22 02/15/22 Unknown History donepezil 10 mg tablet 10 mg PO DAILY 02/15/22 02/15/22 Unknown History escitalopram oxalate 20 mg tablet 20 mg PO DAILY 02/15/22 02/15/22 Unknown History fluticasone 250 mcg-salmeterol 50 1 inh inhalation BID 02/15/22 02/15/22 Unknown History mcg/dose blistr powdr for inhalation (Advair Diskus) fluticasone propionate 50 1 spray intranasal BID 02/15/22 02/15/22 Unknown History mcg/actuation nasal spray,suspension furosemide 40 mg tablet 40 mg PO DAILY 02/15/22 02/15/22 Unknown History isosorbide mononitrate 30 mg 30 mg PO QAM 02/15/22 02/15/22 Unknown History tablet,extended release 24 hr lactulose 10 gram/15 mL oral 20 g PO BID PRN Constipation 02/15/22 02/15/22 Unknown History solution lidocaine 5 % topical patch 1 patch topical DAILY 02/15/22 02/15/22 Unknown History magnesium hydroxide 400 mg/5 mL 30 ml PO BEDTIME PRN Constipation 02/15/22 02/15/22 Unknown History oral suspension (Milk of Magnesia) miconazole nitrate 2 % topical 1 appl topical DAILY 02/15/22 02/15/22 Unknown History powder nystatin 100,000 unit/gram topical 1 appl topical BID 02/15/22 02/15/22 Unknown History powder pantoprazole 20 mg tablet,delayed 20 mg PO DAILY 02/15/22 02/15/22 Unknown History release potassium chloride 20 mEq 20 meq PO DAILY 02/15/22 02/15/22 Unknown History tablet,extended release sodium phosphates 19 gram-7 118 ml LA DAILY PRN Constipation 02/15/22 02/15/22 Unknown History gram/118 mL enema (Fleet Enema) spironolactone 50 mg tablet 50 mg PO DAILY 02/15/22 02/15/22 Unknown History tiotropium bromide 2.5 2 inh inhalation QAM 02/15/22 02/15/22 Unknown History mcg/actuation mist for inhalation (Spiriva Respimat) trazodone 150 mg tablet 150 mg PO BEDTIME PRN Sleep 02/15/22 02/15/22 Unknown History zinc oxide 20 % topical ointment 1 appl topical DAILY PRN Rash 02/15/22 02/15/22 Unknown History Physical Exam Vital Signs: Vital Signs: Last Vital Signs Temp 97.4 F 02/19/22 07:59 Pulse 89 02/19/22 08:01 Resp 23 H 02/19/22 08:01 BP 160/71 H 02/19/22 07:59 Pulse Ox 92 02/19/22 07:59 O2 Del Method 02/19/22 07:59 O2 Flow Rate 30 02/19/22 07:59 FiO2 35 02/19/22 03:14 BMI result Body Mass Index 33.5 Const: General: in distress, ill appearing, lethargic, poor hygiene and tired appearing Orientation/consciousness: No patient oriented x3 and lethargic HEENT: Other: Unremarkable Head: Yes normal to inspection Neck: Other: No clear JVD appreciated. Neck: Yes normal visual inspection Chest: Chest palpation & inspection: normal inspection of the chest Resp: Other: Diminished breath sounds with crackles and rhonchi. Cardio: Other: Not able to clearly auscultate for murmurs or additional sounds due to respiratory interference. GI: Palpation (GI): Soft to palpation Back/Spine/Pelvis: Other: unremarkable Skin: General skin exam: no rashes or lesions noted Neuro: General: No patient oriented x3 Extrem: Other: 1+ edema. General: Yes normal to inspection Psych: Mental Status: mental status grossly abnormal Objective Labs and Meds Result diagrams: 02/19/22 06:44 02/19/22 06:44 Lab results: Laboratory Results - last 24 hr 02/18/22 02/18/22 02/19/22 12:15 17:09 00:52 WBC RBC Hgb Hct MCV MCH MCHC RDW Plt Count MPV Absolute Nucleated RBC Nucleated RBC % (auto) Sodium Potassium Chloride Carbon Dioxide Anion Gap BUN Creatinine Estim Creat Clear Calc Estimated GFR POC Glucose 111 94 115 Random Glucose Calcium B-Natriuretic Peptide 02/19/22 02/19/22 02/19/22 06:04 06:44 06:44 WBC 9.5 RBC 3.05 L Hgb 10.1 L Hct 30.0 L MCV 98.4 H MCH 33.1 H MCHC 33.7 RDW 14.7 Plt Count 58 L MPV 12.1 Absolute Nucleated RBC 0.000 Nucleated RBC % (auto) 0.0 Sodium 146 H Potassium 3.5 Chloride 107 Carbon Dioxide 28 Anion Gap 15 BUN 31 H Creatinine 0.72 Estim Creat Clear Calc 111.5 Estimated GFR > 60 POC Glucose 104 Random Glucose 111 Calcium 8.9 B-Natriuretic Peptide 02/19/22 06:44 WBC RBC Hgb Hct MCV MCH MCHC RDW Plt Count MPV Absolute Nucleated RBC Nucleated RBC % (auto) Sodium Potassium Chloride Carbon Dioxide Anion Gap BUN Creatinine Estim Creat Clear Calc Estimated GFR POC Glucose Random Glucose Calcium B-Natriuretic Peptide 1150 H ECG Interpretation: EKG with sinus rhythm, PACs; nonspecific intraventricular conduction defect, low voltage in limb leads, nonspecific ST-T changes. Assessment and Plan (1) Acute heart failure: Status: Acute (2) Decompensated liver disease: Status: Acute (3) Acute respiratory failure: Status: Acute (4) Cirrhosis of liver: Status: Acute Plan Cardiac BNP was initially 67 but then went up to over 1100. Troponins are 5 followed by 225 followed by 199. Chest x-ray from yesterday shows increase in pulmonary vascular congestion/patchy infiltrates in the right lung. Could be cardiogenic versus infectious/inflammatory. Overall, difficult to say if the pulmonary findings and clinical duration is from cardiogenic or noncardiogenic pulmonary edema. Would treat for both. Start him on IV Bumex drip. Based on diuretic response, can add metolazone as well. Echocardiogram for cardiac function assessment. Guarded prognosis. Code status is DNR DNI and noted. Discussed with . Procedures Date of Service Date of Service: 02/19/22
[2022-02-19] MEDS: Potassium Chloride/H20 10 MEQ/100 ML PIGGYBACK 100 MEQ IV ×2 (10:41→13:20)
[2022-02-19] MEDS: Albumin Human 25 % 100 ML IV ×2 (10:41→12:26)
[2022-02-19] MEDS: Bumetanide 25 MG in Container,Empty 0 ML 4 MG IVCONT (11:24)
[2022-02-19 12:15] LABS: Glucose, Whole Blood 100 mg/dL (60-115)
[2022-02-19] MEDS: Morphine Sulfate 2 MG/ML CARTRIDGE IVPUSH (14:50)
--- NOTE | 2022-02-19 15:05 | PC.NURSE ---
Addendum entered by Cheli Purdy RN 02/19/22 15:16: Daughter at bedside. Camera in room, safety precautions taken, sitter in room, hourly rounding. Original Note: report received from overnight RN. Pt noted to be very lethargic, wakes to name but only briefly. Morning PO meds held d/t lethargy. notified and okayed. health care facility administrator per MAY.
--- NOTE | 2022-02-19 15:16 | PC.NURSE ---
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 This RN witness to discussion.
--- NOTE | 2022-02-19 15:25 | HO.PM.IMPN ---
Subjective Subjective Date of Service: 02/19/22 Interval History: patient noted to have persistent shortness of breath, tachypneic, on BiPAP finger oximetry 92% patient lethargic unable to provide meaningful no history open eyes to verbal command. no fevers overnight remains tachypneic, tachycardia improved, tolerated BiPAP. Physical Exam Vital Signs: Vital Signs: Last Vital Signs Temp 97.3 F 02/19/22 12:00 Pulse 94 02/19/22 14:51 Resp 30 H 02/19/22 14:51 BP 136/61 02/19/22 14:51 Pulse Ox 92 02/19/22 14:51 O2 Del Method 02/19/22 14:51 O2 Flow Rate 30 02/19/22 12:00 FiO2 35 02/19/22 03:14 BMI result Body Mass Index 33.5 Const: Other: General lethargic , tachypneic, in r espiratory distres s.? Neck? supple n o JVD. CVS? regula r rate rhythm, Res piratory lungs? ta chypneic, crackles , expiratory wheez e, diminished sunshine th sound Gastroin testinal abdomen s oft, distended, caroline wel sounds audible , no rigidity. Ext remities? minimal edema bilateral lo wer extremity Vanessa ro? unable to asse ss, patient lethar gic, moving both u pper extremities, paraplegic skin ra sh upper extremity Objective Data Active Medications Acetaminophen (Acetaminophen 325 Mg Tablet) 650 mg PO Q12H PRN PRN Reason: Pain, Severe (Pain Scale 7-10) Last Admin: 02/17/22 21:51 Dose: 650 mg Documented By: LYDIA Albuterol/Ipratropium (Albuterol/Iprat 2.5/0.5mg 3 Ml Ampul.Neb) 3 ml INHALE RQ6H WHILE AWAKE COUNTS INCLUDE 234 BEDS AT [facility] Last Admin: 02/19/22 14:23 Dose: 3 ml Documented By: MAHENDRA Morphine Sulfate (Morphine Sulfate 2 Mg/Ml Cartridge) 2 mg IVPUSH Q4H PRN; Protocol PRN Reason: sob Last Admin: 02/19/22 14:50 Dose: 2 mg Documented By: LEISA Nystatin (Nystatin Powder 15 Gm Bottle) 1 appl TOPICAL BID COUNTS INCLUDE 234 BEDS AT THE [facility]; Protocol Last Admin: 11/21/22 09:25 Dose: 1 appl Documented By: LEISA Labs CBC & Chem 7: 02/19/22 06:44 02/19/22 06:44 Labs: Laboratory Results - last 24 hr 02/18/22 02/19/22 02/19/22 17:09 00:52 06:04 MCV MCH MCHC RDW Plt Count MPV Absolute Nucleated RBC Nucleated RBC % (auto) Anion Gap Estim Creat Clear Calc Estimated GFR POC Glucose 94 115 104 Random Glucose Calcium B-Natriuretic Peptide 02/19/22 02/19/22 02/19/22 06:44 06:44 06:44 MCV 98.4 H MCH 33.1 H MCHC 33.7 RDW 14.7 Plt Count 58 L MPV 12.1 Absolute Nucleated RBC 0.000 Nucleated RBC % (auto) 0.0 Anion Gap 15 Estim Creat Clear Calc 111.5 Estimated GFR > 60 POC Glucose Random Glucose 111 Calcium 8.9 B-Natriuretic Peptide 1150 H 02/19/22 12:10 MCV MCH MCHC RDW Plt Count MPV Absolute Nucleated RBC Nucleated RBC % (auto) Anion Gap Estim Creat Clear Calc Estimated GFR POC Glucose 100 Random Glucose Calcium B-Natriuretic Peptide Microbiology Microbiology Results: Microbiology 02/14/22 23:27 Gram Stain - Final Ascites Fluid Anaerobic Culture - Preliminary No growth to date. Body Fluid Culture - Final No growth after 2 days 02/17/22 22:04 Blood Culture - Preliminary Blood - Venous No growth after 24 hours. 02/17/22 22:04 Blood Culture - Preliminary Blood - Venous No growth after 24 hours. Assessment and Plan (1) Acute kidney injury superimposed on CKD: Status: Acute Plan 71 year old male with Past medical history of? paraplegia, neurogenic bladder, type II DM ,dementia,? hypertension,? hyperlipidemia, CVA, BPH, CKD, COPD/emphysema CAD ([place] s/p stenting) s/p CABG x4, KHAN, decompensated cirrhosis with esophageal varices, ascites, hepatic encephalopathy and liver lesions, lung nodule and recent diagnosis of COVID-19 infection? sent from care home facility due to shortness of breath,? was schedule for paracentesis tomorrow.?? On arrival to the emergency room? patient tachypneic, hypoxic requiring CPAP support, underwent bedside? paracentesis,?1 L of fluid was drained, Laboratory data significant for? WBC 20, hemoglobin 12.2, hematocrit 35.3, serum bicarb 21, lactic acid 2.6, magnesium 1.5, AST 38, alk-phos 132, albumin 2.3. patient admitted to ICU since patient was noted to be hypotensive with poor response to IV fluid resuscitation he was placed on empiric antibiotics for SBP, he was treated with IV albumin, midodrine, patient blood pressure and mental status improved but he remained lethargic,his peritoneal fluid was not suggestive of SBP, his ammonia level was normal patient was subsequently transferred to intermediate care unit, he was NPO as per speech therapy and all his psych medications were on hold including Abilify, Cogentin, Aricept, Lexapro and his diuretics were on hold. Acute on chronic hypoxia due to pulmonary edema chest x-ray showed interval increase in pulmonary vascular congestion and patchy infiltrate in right lung noted to have elevated BNP and elevated troponin 225 and [address] and T-wave changes, patient treated aggressively with IV Lasix oxygen support and BiPAP, and echocardiogram today showed wall motion abnormality likely cardiogenic pulmonary edema as well as fluid overload due to underlying cirrhosis, sepsis, since patient is a poor candidate for aggressive intervention with elevated INR 2.2, low platelet count, cirrhosis of liver, and recent acute renal failure and no response to aggressive treatment with IV diuretics, BiPAP, IV antibiotics, case was discussed with patient's daughter healthcare proxy Sravanthi Klein she requested for hospice care, since she was working with hospice as outpatient and has hospital bed and had an arrangements at home therefore will discontinue all current medication and patient will be placed on sublingual morphine, Ativan and scopolamine patch discharge diagnosis pulmonary edema likely cardiogenic versus infectious versus inflammatory sepsis due to pneumonia acute renal failure acute kidney injury hypotension likely due to intravascular volume depletion 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
--- NOTE | 2022-02-19 15:41 | MHC.CM.PN ---
per rounds pt to be dcd home to [facility] jil workman booked for 10 tomorrow to be dcd home with hospice
--- NOTE | 2022-02-19 15:46 | MHC.SLORD ---
Speech Language Pathology Order Status: Per chart review, plan for d/c tomorrow on hospice. Checked in w/ MD via [place] [employer]. Per MD, [employer] f/u not needed. Please re-refer if there are any changes or if [employer] can be of further assistance.
[2022-02-19] MEDS: LORazepam 1 MG TABLET PO (16:11)
[2022-02-19] MEDS: Morphine Sulfate 2 MG/ML CARTRIDGE 4 MG IVPUSH (17:01)
[2022-02-19] MEDS: Scopolamine 1.5 MG PATCH.TD.3 EAR-BEHIND (18:05)
--- NOTE | 2022-02-19 22:38 | W.PM.IDCN ---
History of Present Illness Data of Consult Service Date: 02/19/22 Requesting physician: Nic Sanchez Primary Care Provider: Fatuma Che MD HPI Reason for consult: shortness of breath He presents with shortness of breath and cough for two days. He has been encephlopathic. He has biPap He has been on Merem and Vancomycin. Review of Systems Review of Systems: Yes Unobtainable due to mental condition PMFSH Past Medical History Medical History (Updated 02/19/22 @ 10:42 by Ramakrishna Guo MD) BPH (benign prostatic hyperplasia) CKD (chronic kidney disease) COVID-19 CVA (cerebral vascular accident) Decompensated liver disease Dementia Diabetes Esophageal varices Hyperlipidemia Hypertension Liver lesion Lung nodule KHAN (nonalcoholic steatohepatitis) Neurogenic bladder Paraplegia Surgical History Surgical History (Updated 02/15/22 @ 02:25 by Diane Lozano NP) Hx of CABG Social History Social History service: Yes Current occupational status: retired Meds Allergies Allergy/AdvReac Type Severity Reaction Status Date / Time metformin Allergy Unknown Verified 02/15/22 03:03 Sulfa (Sulfonamide Allergy Unknown Verified 02/15/22 03:03 Antibiotics) BACTRIM Allergy Unknown Rash Uncoded 02/15/22 03:03 Active Medications: Current Medications Acetaminophen (Acetaminophen 325 Mg Tablet) 650 mg PO Q12H PRN PRN Reason: Pain, Severe (Pain Scale 7-10) Last Admin: 02/17/22 21:51 Dose: 650 mg Albuterol/Ipratropium (Albuterol/Iprat 2.5/0.5mg 3 Ml Ampul.Neb) 3 ml INHALE RQ6H WHILE AWAKE [facility] Last Admin: 02/19/22 19:01 Dose: Not Given Lorazepam (Lorazepam 1 Mg Tablet) 1 mg PO Q4H PRN PRN Reason: Restlessness Last Admin: 02/19/22 16:11 Dose: 1 mg Morphine Sulfate (Morphine Sulfate 2 Mg/Ml Cartridge) 4 mg IVPUSH Q2H PRN; Protocol PRN Reason: sob Last Admin: 02/19/22 17:01 Dose: 4 mg Nystatin (Nystatin Powder 15 Gm Bottle) 1 appl TOPICAL BID HUNTER; Protocol Last Admin: 02/19/22 09:25 Dose: 1 appl Scopolamine (Scopolamine 1.5 Mg Patch.Td.3) 1.5 mg EAR-BEHIND Q72H HUNTER Last Admin: 02/19/22 18:05 Dose: 1.5 mg Home Medications Medication Instructions Recorded Confirmed Last Taken Type acetaminophen 325 mg tablet 650 mg PO Q6H PRN Pain 02/15/22 02/15/22 Unknown History aripiprazole 2 mg tablet (Abilify) 2 mg PO BID 02/15/22 02/15/22 Unknown History artificial tears solution eye drops 1 drp ophthalmic (eye) BID 02/15/22 02/15/22 Unknown History atorvastatin 20 mg tablet 20 mg PO BEDTIME 02/15/22 02/15/22 Unknown History benztropine 1 mg tablet 1 mg PO BID 02/15/22 02/15/22 Unknown History bisacodyl 10 mg rectal suppository 10 mg IA DAILY PRN Constipation 02/15/22 02/15/22 Unknown History buspirone 30 mg tablet 30 mg PO BID 02/15/22 02/15/22 Unknown History carboxymethylcellulose sodium 0.5 1 drp ophthalmic (eye) QID 02/15/22 02/15/22 Unknown History % eye drops carvedilol 12.5 mg tablet 12.5 mg PO DAILY 02/15/22 02/15/22 Unknown History donepezil 10 mg tablet 10 mg PO DAILY 02/15/22 02/15/22 Unknown History escitalopram oxalate 20 mg tablet 20 mg PO DAILY 02/15/22 02/15/22 Unknown History fluticasone 250 mcg-salmeterol 50 1 inh inhalation BID 02/15/22 02/15/22 Unknown History mcg/dose blistr powdr for inhalation (Advair Diskus) fluticasone propionate 50 1 spray intranasal BID 02/15/22 02/15/22 Unknown History mcg/actuation nasal spray,suspension furosemide 40 mg tablet 40 mg PO DAILY 02/15/22 02/15/22 Unknown History isosorbide mononitrate 30 mg 30 mg PO QAM 02/15/22 02/15/22 Unknown History tablet,extended release 24 hr lactulose 10 gram/15 mL oral 20 g PO BID PRN Constipation 02/15/22 02/15/22 Unknown History solution lidocaine 5 % topical patch 1 patch topical DAILY 02/15/22 02/15/22 Unknown History magnesium hydroxide 400 mg/5 mL 30 ml PO BEDTIME PRN Constipation 02/15/22 02/15/22 Unknown History oral suspension (Milk of Magnesia) miconazole nitrate 2 % topical 1 appl topical DAILY 02/15/22 02/15/22 Unknown History powder nystatin 100,000 unit/gram topical 1 appl topical BID 02/15/22 02/15/22 Unknown History powder pantoprazole 20 mg tablet,delayed 20 mg PO DAILY 02/15/22 02/15/22 Unknown History release potassium chloride 20 mEq 20 meq PO DAILY 02/15/22 02/15/22 Unknown History tablet,extended release sodium phosphates 19 gram-7 118 ml IA DAILY PRN Constipation 02/15/22 02/15/22 Unknown History gram/118 mL enema (Fleet Enema) spironolactone 50 mg tablet 50 mg PO DAILY 02/15/22 02/15/22 Unknown History tiotropium bromide 2.5 2 inh inhalation QAM 02/15/22 02/15/22 Unknown History mcg/actuation mist for inhalation (Spiriva Respimat) trazodone 150 mg tablet 150 mg PO BEDTIME PRN Sleep 02/15/22 02/15/22 Unknown History zinc oxide 20 % topical ointment 1 appl topical DAILY PRN Rash 02/15/22 02/15/22 Unknown History Physical Exam Vital Signs: Vital Signs: Last Vital Signs Temp 97.9 F 02/19/22 19:31 Pulse 88 02/19/22 19:31 Resp 19 02/19/22 19:31 BP 140/89 H 02/19/22 19:31 Pulse Ox 87 L 02/19/22 19:31 O2 Del Method 02/19/22 19:31 O2 Flow Rate 9 02/19/22 19:31 FiO2 35 02/19/22 03:14 BMI result Body Mass Index 33.5 Psych: Other: confused Results Labs CBC & Chem 7: 02/19/22 06:44 02/19/22 06:44 Labs: Short CBC 02/19/22 Range/Units 06:44 WBC 9.5 (4.8-10.8) X10*3/uL Hgb 10.1 L (14.0-18.0) g/dl Hct 30.0 L (42.0-52.0) % Plt Count 58 L (160-400) X10*3/uL BMP 02/19/22 06:44 Sodium 146 H Potassium 3.5 Chloride 107 Carbon Dioxide 28 BUN 31 H Creatinine 0.72 Calcium 8.9 Microbiology Microbiology Results: Microbiology 02/14/22 23:27 Ascites Fluid Gram Stain - Final 02/14/22 23:27 Ascites Fluid Anaerobic Culture - Preliminary No growth to date. 02/14/22 23:27 Ascites Fluid Body Fluid Culture - Final No growth after 2 days 02/17/22 22:04 Blood - Venous Blood Culture - Preliminary No growth after 24 hours. 02/17/22 22:04 Blood - Venous Blood Culture - Preliminary No growth after 24 hours. 02/14/22 23:27 Urine clean catch - Urine cantu top Urine Culture - Final Pseudomonas aeruginosa Enterococcus faecium 02/14/22 22:06 Blood - Venous Blood Culture - Preliminary No growth after 48 hours. 02/14/22 22:07 Blood - Venous Blood Culture - Preliminary No growth after 48 hours. Assessment and Plan (1) Acute respiratory failure: Status: Acute He has some respiratory failure and basilar infiltrates He has no bactermia He has pyuria Plan Would continue broad specturm antibioto probably 7-2od
[2022-02-19 22:47] LABS: Vancomycin Trough 12.5 mcg/mL (10.0-20.0)
[2022-02-20] MEDS: Morphine Sulfate 2 MG/ML CARTRIDGE 4 MG IVPUSH ×3 (02:52→09:55)
[2022-02-20 03:09] VITALS: RESP 28
--- NOTE | 2022-02-20 06:36 | PC.RT ---
Pt remains on [employer], pt should be off all of oxygen and not on 6 liters oxymask as well as duonebs also should be discontinued. Thanks Elie Singer
[2022-02-20 07:33] VITALS: RESP 32; TEMP 36.4
[2022-02-20] MEDS: Nystatin Powder 15 GM BOTTLE 1 APPL TOPICAL (07:45)
--- NOTE | 2022-02-20 08:32 | P.DS_ITS ---
DS: Providers Provider Date of Service: 02/20/22 Date of admission: 02/15/22 00:41 Primary care physician: Fatuma Che MD Consults: 02/18/22 13:07 Consult to Infectious Diseases Routine Consulting Provider: Lucero Ocasio Reason for consultation: uti/pneumonia Has provider been notified: No 02/19/22 09:06 Consult to Cardiology Routine Consulting Provider: Ramakrishna Guo Reason for consultation: chf Has provider been notified: No DS: Diagnosis Discharge Diagnosis (1) Acute respiratory failure: Status: Acute DS: Summary Hospital Course Hospital Course: 71 year old male with Past medical history of? paraplegia, neurogenic bladder, type II DM ,dementia,? hypertension,? hyperlipidemia, CVA, BPH, CKD, COPD/emphysema CAD (SD s/p stenting) s/p CABG x4, KHAN, decompensated cirrhosis with esophageal varices, ascites, hepatic encephalopathy and liver lesions, lung nodule and recent diagnosis of COVID-19 infection?? sent from intermediate facility due to shortness of breath,? was schedule for paracentesis tomorrow.?? On arrival to the emergency room? patient tachypneic, hypoxic requiring CPAP support, underwent bedside? paracentesis,?1 L? of fluid was drained, Laboratory data significant for? WBC 20, hemoglobin 12.2, hematocrit 35.3, serum bicarb 21, lactic acid 2.6, magnesium 1.5, AST 38, alk-phos 132, albumin 2.3. patient admitted to ICU since patient was noted to be hypotensive with poor response to IV fluid? resuscitation he was placed on empiric antibiotics for SBP, he was treated with IV albumin, midodrine, patient blood pressure and mental status improved? but he remained lethargic,his peritoneal fluid was not suggestive of SBP, his ammonia level was normal patient was subsequently transferred to intermediate care unit, he was NPO as per speech therapy and all his psych medications were on hold including Abilify, Cogentin, Aricept, Lexapro and his diuretics were on hold. Acute on chronic hypoxia due to pulmonary edema? chest x-ray showed interval increase in pulmonary vascular congestion and patchy infiltrate in right lung noted to have elevated BNP? and elevated troponin 225 and [address] and T-wave changes, patient treated aggressively with IV Lasix oxygen support and BiPAP, and echocardiogram today showed wall motion abnormality likely cardiogenic pulmonary edema as well as fluid overload due to underlying cirrhosis, sepsis, since patient is a poor candidate for aggressive intervention with elevated INR 2.2, low platelet count, cirrhosis of liver, and recent acute renal failure and no response to aggressive treatment with IV diuretics, BiPAP, IV antibiotics, case was discussed with patient's daughter healthcare proxy Sravanthi Klein? 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 with elevated INR, thrombocytopenia and hypoalbuminemia ?history of CVA/neurogenic bladder and paraplegia Time Spent with Patient Time attestation: Total time spent providing and/or coordinating discharge services: Discharge coordination time: Greater than 30 minutes Quality: Safe Use of Opioids Does Pt have an Active Cancer Diagnosis on the Problem List?: No Quality: Stroke Does the patient have a stroke diagnosis?: No Physical Exam Vital Signs: Vital Signs: Last Vital Signs Temp 97.5 F 02/20/22 07:33 Pulse 88 02/19/22 19:31 Resp 32 H 02/20/22 07:33 BP 140/89 H 02/19/22 19:31 Pulse Ox 87 L 02/19/22 19:31 O2 Del Method 02/19/22 19:31 O2 Flow Rate 9 02/19/22 19:31 FiO2 35 02/19/22 03:14 BMI result Body Mass Index 33.5 Const: Other: General:Unresponsivie Resp: No respiratory distress CVS: S1,S2,RRR GI: +BS, NT, no distention Skin: No rash Neuro: Unable to assess Psych: Unresponsive DS: Data Data Completed and Pending Labs on day of discharge: Laboratory Results - last 24 hr 02/19/22 02/19/22 12:10 22:05 POC Glucose 100 Vancomycin Trough 12.5 Preliminary micro results at discharge 02/17/22 22:04 Blood Culture - Preliminary Blood - Venous No growth after 48 hours. 02/17/22 22:04 Blood Culture - Preliminary Blood - Venous No growth after 48 hours. 02/14/22 23:27 Anaerobic Culture - Preliminary Ascites Fluid No growth to date. Discharge Plan Discharge Anticipated Discharge Date/Time: 02/20/22 10:00 Patient Disposition: Hospice - Home Discharge Diagnosis: acute hypoxic respiratory failure due to pulmonary edema Referrals: [facility] [Outside] - 1 Week Fatuma Che MD [Primary Care Provider] - 1 Week Discharge Medications: New morphine concentrate 100 mg/5 mL (20 mg/mL) solution 5 mg PO Q3H PRN (Reason: pain/comfort) 15 Days Qty: 30 0RF Rx Instructions: Partial Fill upon patient request. atropine 1 % drops 1 drp sublingual Q6H PRN (Reason: Secretions) 15 Days Qty: 5 0RF lorazepam [Lorazepam Intensol] 2 mg/mL concentrate 0.5 mg PO Q4H PRN (Reason: anxiety/restlessness) Qty: 30 0RF Discontinued furosemide 40 mg Tablet 40 mg PO DAILY fluticasone propion-salmeterol [Advair Diskus] 250-50 mcg/dose Blister With Device 1 inh INHALATION BID acetaminophen 325 mg Tablet 650 mg PO Q6H PRN (Reason: Pain) atorvastatin 20 mg Tablet 20 mg PO BEDTIME carvedilol 12.5 mg Tablet 12.5 mg PO DAILY Rx Instructions: must administer with a meal/food donepezil 10 mg Tablet 10 mg PO DAILY isosorbide mononitrate 30 mg Tablet Extended Release 24 Hr 30 mg PO QAM artificial tears solution Drops 1 drp OPHTHALMIC (EYE) BID miconazole nitrate 2 % Powder 1 appl TOPICAL DAILY zinc oxide 20 % Ointment 1 appl TOPICAL DAILY PRN (Reason: Rash) pantoprazole 20 mg Tablet,Delayed Release (Dr/Ec) 20 mg PO DAILY magnesium hydroxide [Milk of Magnesia] 400 mg/5 mL Suspension 30 ml PO BEDTIME PRN (Reason: Constipation) carboxymethylcellulose sodium 0.5 % Drops 1 drp OPHTHALMIC (EYE) QID bisacodyl 10 mg Suppository 10 mg VA DAILY PRN (Reason: Constipation) trazodone 150 mg Tablet 150 mg PO BEDTIME PRN (Reason: Sleep) buspirone 30 mg Tablet 30 mg PO BID lidocaine 5 % Adhesive Patch,Medicated 1 patch TOPICAL DAILY Rx Instructions: leave on most painful area for up to 12 hrs benztropine 1 mg Tablet 1 mg PO BID Fleet Enema 19-7 gram/118 mL Enema 118 ml VA DAILY PRN (Reason: Constipation) nystatin 100,000 unit/gram Powder 1 appl TOPICAL BID fluticasone propionate 50 mcg/actuation [place],Suspension 1 spray INTRANASAL BID Rx Instructions: administer into each nostril spironolactone 50 mg Tablet 50 mg PO DAILY escitalopram oxalate 20 mg Tablet 20 mg PO DAILY lactulose 10 gram/15 mL Solution 20 g PO BID PRN (Reason: Constipation) aripiprazole [Abilify] 2 mg Tablet 2 mg PO BID Spiriva Respimat 2.5 mcg/actuation Mist 2 inh INHALATION QAM potassium chloride 20 mEq Tablet Extended Release 20 meq PO DAILY Discharge Orders: Discharge Order (Routine); Ordered 02/20/22 Ordered By: Solitario Silva Diet: Advance to usual diet Activity on Discharge: As tolerated Stand Alone Forms: Patient Portal Discharge page Care Plan Goals: discharged home for comfort care only Health Concerns: continue medications for comfort including morphine, Ativan and scopolamine patch Plan of Treatment: follow-up with primary care physician Assessment: as above
== END 2022-02-20 10:25 | disposition hospice, home (50) | DRG 871 ==
LOC: HO.ED 02-15 00:43 → HO.ICU 02-15 00:49 → HO.IMC 02-16 14:24
PROVIDERS: Hospitalist; Internal Medicine; Internal Medicine Pulmonary Disease; Admitting Provider Registered Nurse Community Health; Emergency Provider Student in an Organized Health Care Education/Training Program; PCP Family Medicine Geriatric Medicine; Visit Provider Internal Medicine
DX: A41.9 Sepsis, unspecified organism (principal); J18.9 Pneumonia, unspecified organism; J96.01 Acute respiratory failure with hypoxia; K76.7 Hepatorenal syndrome; R65.21 Severe sepsis with septic shock; G82.20 Paraplegia, unspecified; R18.8 Other ascites; C78.7 Secondary malignant neoplasm of liver and intrahepatic bile duct; Z66 Do not resuscitate; N40.0 Benign prostatic hyperplasia without lower urinary tract symptoms; K75.81 Nonalcoholic steatohepatitis (NASH); N31.9 Neuromuscular dysfunction of bladder, unspecified; F03.90 Unspecified dementia, unspecified severity, without behavioral disturbance, psychotic disturbance, mood disturbance, and anxiety; R91.1 Solitary pulmonary nodule; K74.60 Unspecified cirrhosis of liver; I25.10 Atherosclerotic heart disease of native coronary artery without angina pectoris; Z95.1 Presence of aortocoronary bypass graft; I25.2 Old myocardial infarction; J43.9 Emphysema, unspecified; E78.5 Hyperlipidemia, unspecified; I10 Essential (primary) hypertension; D69.6 Thrombocytopenia, unspecified; K76.82 Hepatic encephalopathy; Z20.822 Contact with and (suspected) exposure to COVID-19; Z86.73 Personal history of transient ischemic attack (TIA), and cerebral infarction without residual deficits; Z86.16 Personal history of COVID-19; Z88.1 Allergy status to other antibiotic agents; Z88.2 Allergy status to sulfonamides; Z88.8 Allergy status to other drugs, medicaments and biological substances; Z79.899 Other long term (current) drug therapy
CPT/HCPCS: 0241U; 36415; 71045; 80048; 80053; 80076; 80202; 81001; 81003; 82042; 82140; 82150; 82803; 82945; 82947; 83605; 83615; 83735; 83880; 83986; 84100; 84157; 84484; 85007; 85025; 85027; 85610; 85730; 87040; 87070; 87073; 87086; 87088; 87116; 87186; 87205; 89051; 92526; 92610; 93005; 93306; 94640; 94660; 99285; C1758; J0456; J0696; J1940; J2185; J2270; J2543; J3370; J3475; P9047; Q9957